=== PATIENT | female | born 1970 | race African-American/Black ===

== ENCOUNTER 2018-09-03 09:16 | Inpatient (IN) | payer MEDICAID ==
[~2018-09-03] VITALS: Ht 157.5 cm; Wt 117.9 kg
--- NOTE | 2018-09-03 09:18 | NUR ---
ED Nurse Note: Pt BIBTracy from a friend's house complainign of SOB x 2 days. Pt had an argument with friend this morning but pt states that she has been feeling like this for 2 days now. Pt has a hx of asthma and COPD. Pt appeared in the ER w/ labored breathing. Pt is sating at 100% on RA. According to EMS, pt was in the hospital last month for PNA. Pt is complaining of left upper breast pain 7/10. Non radiating. Pt is A + O x4. Ambulatory. Skin warm to touch.
[2018-09-03 09:26] VITALS: BP 134/82
[2018-09-03] MEDS ORDERED: Solu-MEDROL 125mg Inj IVP ONE (09:30)
[2018-09-03] MEDS: Ipratropium 0.02% Inh Soln 2.5ml UD HHN SCH ×3 (09:37→12:41)
[2018-09-03] MEDS: Levalbuterol Inh UD 1.25mg/0.5ml HHN SCH ×3 (09:37→12:41)
--- NOTE | 2018-09-03 09:49 | NUR ---
ED Nurse Note: RT at the bedside.
--- NOTE | 2018-09-03 09:51 | NUR ---
ED Nurse Note: Notified radiology of CXR order.
--- NOTE | 2018-09-03 10:01 | NUR ---
ED Nurse Note: Xray has been completed.
[2018-09-03 10:02] LABS: ANION GAP 2 mmol/L (5-15); BLOOD UREA NITROGEN 14 mg/dL (7-18); CALCIUM 9.2 MG/DL (8.5-10.1); CARBON DIOXIDE 37 MMOL/L (21-32); CHLORIDE 102 MMOL/L (98-107); CREATININE 0.5 MG/DL (0.55-1.30); POTASSIUM 4.1 MMOL/L (3.5-5.1); SODIUM 141 MMOL/L (136-145)
[2018-09-03 10:06] LABS: BASOPHILS % (AUTO) 2.7 % (0.0-2.0); EOSINOPHILS % (AUTO) 0.7 % (0.0-3.0); HEMATOCRIT 38.3 % (37.0-47.0); HEMOGLOBIN 11.7 G/DL (12.0-16.0); LYMPHOCYTES % (AUTO) 8.5 % (20.0-45.0); MEAN CORPUSCULAR VOLUME 89 FL (80-99); MONOCYTES % (AUTO) 5.3 % (1.0-10.0); NEUTROPHILS % (AUTO) 82.8 % (45.0-75.0); PLATELET COUNT 322 K/UL (150-450); RED BLOOD COUNT 4.32 M/UL (4.20-5.40); RED CELL DISTRIBUTION WIDTH 16.5 % (11.6-14.8); WHITE BLOOD COUNT 16.9 K/UL (4.8-10.8)
[2018-09-03 10:08] LABS: APPEARANCE,URINE CLOUDY; BILIRUBIN, URINE NEGATIVE (NEGATIVE); COLOR,URINE PALE YELLOW; GLUCOSE, URINE (UA) NEGATIVE (NEGATIVE); KETONES,URINE NEGATIVE (NEGATIVE); LEUKOCYTE ESTERASE ,URINE 1+ (NEGATIVE); NITRITE,URINE NEGATIVE (NEGATIVE); PH,URINE 6 (4.5-8.0); PROTEIN,URINE NEGATIVE (NEGATIVE); UROBILINOGEN,URINE NORMAL MG/DL (0.0-1.0)
[2018-09-03 10:18] LABS: ALANINE AMINOTRANSFERASE 21 U/L (12-78); ALBUMIN 3.1 G/DL (3.4-5.0); ALBUMIN/GLOBULIN RATIO 0.7 (1.0-2.7); ALKALINE PHOSPHATASE 95 U/L (46-116); ASPARTATE AMINO TRANSFERASE 12 U/L (15-37); BILIRUBIN,TOTAL 0.3 MG/DL (0.2-1.0); CKMB 0.7 NG/ML (0.0-3.6); CREATINE KINASE 22 U/L (26-308)
--- NOTE | 2018-09-03 10:51 | NUR ---
ED Nurse Note: Blood culture and lactic acid has been collected and sent to lab.
--- NOTE | 2018-09-03 11:13 | NUR ---
ED Nurse Note: Second lactic acid sent.
[2018-09-03 11:21] VITALS: BP 133/74
[2018-09-03] MEDS ORDERED: Azithromycin 500 MG in NS 275 ML IV ONE (11:45)
[2018-09-03] MEDS ORDERED: Piperacillin/Tazobactam 3.375 GM in NS 110 ML IVPB ONE (11:45)
--- NOTE | 2018-09-03 12:02 | Emergency Room Report ---
History of Present Illness General Chief Complaint: Dyspnea/Respdistress Source: Patient Present Illness HPI 48-year-old female presents ED for evaluation. Brought in by EMS for shortness of breath. Patient states she has history of COPD and has been short of breath for the last few days that she forgot her medications back home. Also complaining of chest tightness. Denies chest pain. Denies fevers or chills. Denies cough. States that she's been recently admitted for pneumonia. States she stopped smoking one week ago. Denies drug use. No other aggravating relieving factors. Denies any other associated symptoms Allergies: Coded Allergies: SULFA (SULFONAMIDE ANTIBIOTICS) (Verified Allergy, Unknown, 09/03/18) Patient History Past Medical History: HTN, asthma, COPD, psych hx Past Surgical History: none Pertinent Family History: none Social History: Denies: smoking, alcohol use, drug use Now: No Immunizations: UTD Reviewed Nursing Documentation: PMH: Agreed; PSxH: Agreed Nursing Documentation-PMH Past Medical History: No History, Except For Hx Asthma: Yes Hx COPD: Yes History Of Psychiatric Problem: Yes - Bipolar Review of Systems All Other Systems: negative except mentioned in HPI Physical Exam Vital Signs Date Time Temp Pulse Resp B/P (MAP) Pulse Ox O2 Delivery O2 Flow Rate FiO2 09/03/18 09:11 97.0 117 21 133/77 Room Air 09/03/18 09:26 92 09/03/18 09:26 92 09/03/18 11:21 2.0 Sp02 EP Interpretation: reviewed, normal General Appearance: no apparent distress, alert, GCS 15, non-toxic Head: normocephalic, atraumatic Eyes: bilateral eye normal inspection, bilateral eye PERRL ENT: hearing grossly normal, normal pharynx, no angioedema, normal voice Neck: full range of motion, supple/symm/no masses Respiratory: chest non-tender, crackles, speaking full sentences, wheezing Cardiovascular #1: regular rate, rhythm, no edema Cardiovascular #2: 2+ carotid (R), 2+ carotid (L), 2+ radial (R), 2+ radial (L) , 2+ dorsalis pedis (R), 2+ dorsalis pedis (L) Gastrointestinal: normal bowel sounds, non tender, soft, non-distended, no guarding, no rebound Rectal: deferred Genitourinary: normal inspection, no CVA tenderness Musculoskeletal: back normal, gait/station normal, normal range of motion, non- tender Neurologic: alert, oriented x3, responsive, motor strength/tone normal, sensory intact, speech normal Psychiatric: judgement/insight normal, memory normal, mood/affect normal, no suicidal/homicidal ideation Reflexes: 3+ bicep (R), 3+ bicep (L), 3+ tricep (R), 3+ tricep (L), 3+ knee (R) , 3+ knee (L) Skin: normal color, no rash, warm/dry, well hydrated Lymphatic: no adenopathy Medical Decision Making Diagnostic Impression: Primary Impression: COPD exacerbation ER Course Hospital Course 48-year-old F presenting to ED with SOB. h/o COPD Differential diagnoses include: Pneumonia, CHF exacerbation, pneumothorax, fluid overload Clinical course Patient placed on stretcher. On manager cardiac cath with stable vitals. After initial history and physical, I ordered nebulizer treatments. I ordered labs, IV fluids, EKG, chest x-ray, blood cultures, UA. Labs - noted leukocytosis, hemoglobin/hematocrit stable, electrolytes okay, lactate okay, troponins negative CXR - bilateral intersitial congestion, R sided infiltrate abx given. ivfs given. Case discussed with Dr. Gregory and he agreed to the patient to his service for further care and support I feel this is a highly complex case requiring extensive working including EKG/ Rhythm strip, Xray/CT/US, Blood/urine lab work, repeat exams while in ED, and administration of strong opiates/narcotics for pain control, admission to hospital or close patient follow up. Diagnosis - COPD exacerbation Patient admitted to telemetry in serious condition Labs Test 09/03/18 09:40 09/03/18 11:05 White Blood Count 16.9 K/UL (4.8-10.8) Red Blood Count 4.32 M/UL (4.20-5.40) Hemoglobin 11.7 G/DL (12.0-16.0) Hematocrit 38.3 % (37.0-47.0) Mean Corpuscular Volume 89 FL (80-99) Mean Corpuscular Hemoglobin 27.0 PG (27.0-31.0) Mean Corpuscular Hemoglobin Concent 30.4 G/DL (32.0-36.0) Red Cell Distribution Width 16.5 % (11.6-14.8) Platelet Count 322 K/UL (150-450) Mean Platelet Volume 6.6 FL (6.5-10.1) Neutrophils (%) (Auto) 82.8 % (45.0-75.0) Lymphocytes (%) (Auto) 8.5 % (20.0-45.0) Monocytes (%) (Auto) 5.3 % (1.0-10.0) Eosinophils (%) (Auto) 0.7 % (0.0-3.0) Basophils (%) (Auto) 2.7 % (0.0-2.0) Urine Color Pale yellow Urine Appearance Cloudy Urine pH 6 (4.5-8.0) Urine Specific [place] 1.020 (1.005-1.035) Urine Protein Negative (NEGATIVE) Urine Glucose (UA) Negative (NEGATIVE) Urine Ketones Negative (NEGATIVE) Urine Blood 2+ (NEGATIVE) Urine Nitrite Negative (NEGATIVE) Urine Bilirubin Negative (NEGATIVE) Urine Urobilinogen Normal MG/DL (0.0-1.0) Urine Leukocyte Esterase 1+ (NEGATIVE) Urine RBC 5-10 /HPF (0 - 2) Urine WBC 5-10 /HPF (0 - 2) Urine Squamous Epithelial Cells Many /LPF (NONE/OCC) Urine Amorphous Sediment Many /LPF (NONE) Urine Bacteria Moderate /HPF (NONE) Sodium Level 141 MMOL/L (136-145) Potassium Level 4.1 MMOL/L (3.5-5.1) Chloride Level 102 MMOL/L (98-107) Carbon Dioxide Level 37 MMOL/L (21-32) Anion Gap 2 mmol/L (5-15) Blood Urea Nitrogen 14 mg/dL (7-18) Creatinine 0.5 MG/DL (0.55-1.30) Estimat Glomerular Filtration Rate > 60 mL/min (>60) Glucose Level 101 MG/DL (74-106) Calcium Level 9.2 MG/DL (8.5-10.1) Total Bilirubin 0.3 MG/DL (0.2-1.0) Aspartate Amino Transf (AST/SGOT) 12 U/L (15-37) Alanine Aminotransferase (ALT/SGPT) 21 U/L (12-78) Alkaline Phosphatase 95 U/L (46-116) Total Creatine Kinase 22 U/L (26-308) Creatine Kinase MB 0.7 NG/ML (0.0-3.6) Creatine Kinase MB Relative Index 3.1 Troponin I 0.017 ng/mL (0.000-0.056) Pro-B-Type Natriuretic Peptide 233 pg/mL (0-125) Total Protein 7.4 G/DL (6.4-8.2) Albumin 3.1 G/DL (3.4-5.0) Globulin 4.3 g/dL Albumin/Globulin Ratio 0.7 (1.0-2.7) Lactic Acid Level 0.80 mmol/L (0.4-2.0) EKG Diagnostic Results Rate: tachycardiac Rhythm: NSR ST Segments: no acute changes ASA given to the pt in ED: No Rhythm Strip Diag. Results EP Interpretation: yes Rhythm: NSR, no PVC's, no ectopy Chest X-Ray Diagnostic Results Chest X-Ray Diagnostic Results : Chest X-Ray Ordered: Yes # of Views/Limited/Complete: 1 View Indication: Shortness of Breath EP Interpretation: Yes Interpretation: no pneumothorax, other - interstitial congestion Impression: Other - COPD/pna Electronically Signed by: Electronically signed by Kade Zavaleta MD Last Vital Signs Date Time Temp Pulse Resp B/P (MAP) Pulse Ox O2 Delivery O2 Flow Rate FiO2 09/03/18 11:21 97.5 112 25 133/74 98 Nasal Cannula 2.0 21 Status: improved Disposition: ADMITTED INPATIENT Condition: Serious Referrals: [facility],REFERRING (PCP) Kade Zavaleta MD Sep 03, 2018 12:02
[2018-09-03] MEDS ORDERED: Albuterol ud Inhalation ONE (12:35)
[2018-09-03] MEDS ORDERED: Levalbuterol Inh UD 1.25mg/0.5ml ONE (12:35)
[2018-09-03] MEDS ORDERED: Ipratropium 0.02% Inh Soln 2.5ml UD ONE (12:37)
[2018-09-03 12:51] VITALS: BP 120/90
--- NOTE | 2018-09-03 13:39 | NUR ---
ED Nurse Note: Gave telephone report to GEE Fischer. Bed unavailable. Will try again.
--- NOTE | 2018-09-03 13:59 | NUR ---
ED Nurse Note: Called tele, bed still unavailable.
--- NOTE | 2018-09-03 14:14 | NUR ---
ED Nurse Note: Admission packet pending.
--- NOTE | 2018-09-03 14:15 | Diagnostic Imaging Report ---
Indication: Shortness of breath Technique: One view of the chest Comparison: none Findings: Patient is rotated to the right. The heart size is upper limits normal. There is equivocal mild interstitial congestion. There is right pulmonary hilar vascular prominence. The heart size is upper limits normal Impression: Equivocal mild pulmonary interstitial congestion. Correlate with clinical findings
[2018-09-03] MEDS ORDERED: LISINOPRIL2.5 MG ORAL (14:22)
[2018-09-03] MEDS ORDERED: DEPAKOTE250 MG PO (14:22)
--- NOTE | 2018-09-03 14:48 | NUR ---
ED Nurse Note: Pt transferred up to tele unit. No acute distress noted. Left ER w/ all belongings.
--- NOTE | 2018-09-03 15:30 | NUR ---
NURSE NOTES: Received patient from ED, report received from Dariela FLYNN. Patient's vitals stable, on 3L NC, 96%. Sinus Tachy. Patient placed in bed, in low position, call light within reach. Educated patient on letting staff know when she needs to get out of bed. Addendum: 09/03/18 at 1749 by Amado Ortega RN Physician consult for LORIE Sams and sher Bull
[2018-09-03 16:00] VITALS: BP 138/80
[2018-09-03] MEDS ORDERED: Albuterol/Ipratropium 3ml neb HHN PRN (16:30)
--- NOTE | 2018-09-03 17:00 | NUR ---
NURSE NOTES: Dr. Gregory notified and orders received.
[2018-09-03] MEDS ORDERED: SEROQUEL300 MG ORAL (17:21)
--- NOTE | 2018-09-03 17:30 | NUR ---
NURSE NOTE Patient reports current pharmacy at [facility] . Called and left voicemail regarding current prescriptions.
--- NOTE | 2018-09-03 18:40 | NUR ---
NURSE NOTES: Received phone call from [facility]) and verified patient was on Seroquel 200mg QHS and discharged with that medication.
--- NOTE | 2018-09-03 19:20 | NUR ---
NURSE NOTES: Received pt. and report from GEE Fischer. Observe pt. resting in bed and watching television with sitter at bedside. Pt. is A/O x4. helminthology teacher is in placed, IV site intact, asymptomatic and patent. Bed is in the lowest position and locked. Call light within reach. No SOB or acute distress noted at this time. Will continue plan of care.
--- NOTE | 2018-09-03 19:28 | NUR ---
HAND-OFF: Report given to Chasidy Craig.
[2018-09-03 20:00] VITALS: BP 132/90
[2018-09-03] MEDS: QUEtiapine 200mg tab ORAL SCH (21:12)
[2018-09-03] MEDS: cefTRIAXone 1 GM in D5W 55 ML IVPB SCH (22:49)
[2018-09-04] VITALS: BP 107/71
[2018-09-04 04:00] VITALS: BP 101/58
--- NOTE | 2018-09-04 06:55 | NUR ---
NURSE NOTES: Notified Dr. Gregory that pt. has been sinus tachycardic and had an episode of 4.76 pause on curator of photography and prints. Awaiting call back. Will endorsed to day shift RN.
[2018-09-04 07:30] LABS: EOSINOPHILS % (AUTO) 0.3 % (0.0-3.0); HEMATOCRIT 33.8 % (37.0-47.0); HEMOGLOBIN 10.2 G/DL (12.0-16.0); LYMPHOCYTES % (AUTO) 15.5 % (20.0-45.0); MEAN CORPUSCULAR VOLUME 91 FL (80-99); NEUTROPHILS % (AUTO) 78.2 % (45.0-75.0); PLATELET COUNT 274 K/UL (150-450); RED BLOOD COUNT 3.73 M/UL (4.20-5.40); RED CELL DISTRIBUTION WIDTH 16.5 % (11.6-14.8); WHITE BLOOD COUNT 12.9 K/UL (4.8-10.8)
--- NOTE | 2018-09-04 07:30 | NUR ---
CASE MANAGEMENT:REVIEW 48 YR OLD FEMALE BIBA FROM [facility] CC: SOB PMH: COPD. ASTHMA SI: COPD EXACERBATION 97.0 117 21 133/77 92% ON RA WBC+16.9 IS: DUONEB HHN 500CC NS BOLUS IV SOLUMEDROL IV ZOSYN IV AZITHROMYCIN 1L NS BOLUS URINE/BLOOD CX CXR : TO TELEMETRY INTERQUAL CRITERIA MET
[2018-09-04 07:33] LABS: ALANINE AMINOTRANSFERASE 17 U/L (12-78); ALBUMIN 2.6 G/DL (3.4-5.0); ALBUMIN/GLOBULIN RATIO 0.6 (1.0-2.7); ALKALINE PHOSPHATASE 77 U/L (46-116); ANION GAP 4 mmol/L (5-15); ASPARTATE AMINO TRANSFERASE 34 U/L (15-37); BILIRUBIN,TOTAL 0.2 MG/DL (0.2-1.0); BLOOD UREA NITROGEN 14 mg/dL (7-18); CALCIUM 9.2 MG/DL (8.5-10.1); CARBON DIOXIDE 35 MMOL/L (21-32); CHLORIDE 104 MMOL/L (98-107); CREATININE 0.5 MG/DL (0.55-1.30); POTASSIUM 4.2 MMOL/L (3.5-5.1); SODIUM 143 MMOL/L (136-145)
--- NOTE | 2018-09-04 07:46 | NUR ---
NURSE NOTES: Received report from Chasidy FLYNN. AOX4 and able to make need known. pT WITH 1:1 sitter.No c/o pain. No signs of distress noted. IV 20G LAC SL intact and patent. Pt refused O2 and SCDs. Bed in lowest position locked. Will continue to plan of care.
--- NOTE | 2018-09-04 07:46 | NUR ---
HAND-OFF: Report given to GEE Herring.
[2018-09-04 07:57] VITALS: BP 130/69
[2018-09-04] MEDS: Azithromycin 250mg tab ORAL SCH (08:58)
[2018-09-04] MEDS ORDERED: Lisinopril 2.5mg tab ORAL SCH (09:00)
--- NOTE | 2018-09-04 09:30 | NUR ---
NURSE NOTES: Dr. Gregory called for the patient's episode of pause of pulse(4.76/sec) last night. EKG stat ordered and ordered to call thony Juarez(cardio) regarding any cardiac issues. Called Dr. Ca's office and left a message for the episode of pause of pulse and EKG to Myles FLYNN and awaiting for reply.
--- NOTE | 2018-09-04 10:46 | NUR ---
*-* NO INSURANCE INFORMATION IN BAR UNABLE TO SEND CLINICALS OR REVIEWS *-*
--- NOTE | 2018-09-04 11:06 | Consultation ---
History of Present Illness General Chief Complaint: Dyspnea/Respdistress Present Illness HPI 48-year-old female presents ED for evaluation for shortness of breath. The pt has history of COPD and bipolar do. the pt is pw depressed mood however the pt is stable and not endorsing si/hi. the pt is not endorsing psychotic/manic sxs. the pt is not at imminent dts/dto Allergies: Coded Allergies: PEANUT (Verified Allergy, Intermediate, hives, 09/03/18) TOMATO (Verified Allergy, Intermediate, hives, 09/03/18) [place] (Verified Allergy, Unknown, hives, 09/03/18) SULFA (SULFONAMIDE ANTIBIOTICS) (Verified Allergy, Unknown, 09/03/18) Medication History Scheduled Divalproex Sodium* (Depakote*), 250 MG PO Q12HR, (Reported) Lisinopril* (Lisinopril*), 2.5 MG ORAL DAILY, (Reported) Quetiapine Fumarate (Seroquel), 250 MG ORAL TWICE A DAY, (Reported) Patient History History Provided By: Patient, Medical Record, PMD Healthcare decision maker N Resuscitation status Full Code Advanced Directive on File Past Medical/Surgical History Past Medical/Surgical History: (1) COPD exacerbation (2) Bipolar 1 disorder Review of Systems Psychiatric: Reports: prior hx, anxiety, depressed feelings, emotional problems Physical Exam General Appearance: WD/WN, no apparent distress, alert, morbidly obese Neurologic: alert, oriented x 3, depressed affect Last 24 Hour Vital Signs Date Time Temp Pulse Resp B/P (MAP) Pulse Ox O2 Delivery O2 Flow Rate FiO2 09/04/18 09:00 Nasal Cannula 2.0 09/04/18 08:58 130/69 09/04/18 08:00 114 09/04/18 07:57 98.2 115 20 130/69 (89) 90 115 09/04/18 07:15 108 20 Room Air 21 09/04/18 04:00 115 09/04/18 04:00 97.5 115 19 101/58 (72) 98 115 09/04/18 00:00 98.7 113 21 107/71 (83) 98 113 09/04/18 00:00 113 09/03/18 23:14 112 24 Room Air 21 09/03/18 21:00 Nasal Cannula 2.0 09/03/18 20:00 98.2 107 20 132/90 (104) 100 107 09/03/18 20:00 110 09/03/18 16:00 98.2 106 22 138/80 (99) 96 106 09/03/18 15:43 106 09/03/18 15:26 Nasal Cannula 3.0 09/03/18 14:47 98.2 112 23 137/73 98 Nasal Cannula 2.0 21 09/03/18 12:51 98.1 110 18 120/90 97 Nasal Cannula 2.0 09/03/18 11:21 97.5 112 25 133/74 98 Nasal Cannula 2.0 21 Intake and Output 09/03/18 09/04/18 19:00 07:00 Intake Total 850 ml Balance 850 ml IV Total 850 ml # Voids 4 3 Laboratory Tests Test 09/04/18 06:10 White Blood Count 12.9 K/UL (4.8-10.8) H Red Blood Count 3.73 M/UL (4.20-5.40) L Hemoglobin 10.2 G/DL (12.0-16.0) L Hematocrit 33.8 % (37.0-47.0) L Mean Corpuscular Volume 91 FL (80-99) Mean Corpuscular Hemoglobin 27.2 PG (27.0-31.0) Mean Corpuscular Hemoglobin Concent 30.1 G/DL (32.0-36.0) L Red Cell Distribution Width 16.5 % (11.6-14.8) H Platelet Count 274 K/UL (150-450) Mean Platelet Volume 7.1 FL (6.5-10.1) Neutrophils (%) (Auto) 78.2 % (45.0-75.0) H Lymphocytes (%) (Auto) 15.5 % (20.0-45.0) L Monocytes (%) (Auto) 5.0 % (1.0-10.0) Eosinophils (%) (Auto) 0.3 % (0.0-3.0) Basophils (%) (Auto) 1.0 % (0.0-2.0) Sodium Level 143 MMOL/L (136-145) Potassium Level 4.2 MMOL/L (3.5-5.1) Chloride Level 104 MMOL/L (98-107) Carbon Dioxide Level 35 MMOL/L (21-32) H Anion Gap 4 mmol/L (5-15) L Blood Urea Nitrogen 14 mg/dL (7-18) Creatinine 0.5 MG/DL (0.55-1.30) L Estimat Glomerular Filtration Rate > 60 mL/min (>60) Glucose Level 128 MG/DL (74-106) H Calcium Level 9.2 MG/DL (8.5-10.1) Total Bilirubin 0.2 MG/DL (0.2-1.0) Aspartate Amino Transf (AST/SGOT) 34 U/L (15-37) Alanine Aminotransferase (ALT/SGPT) 17 U/L (12-78) Alkaline Phosphatase 77 U/L (46-116) Total Protein 6.6 G/DL (6.4-8.2) Albumin 2.6 G/DL (3.4-5.0) L Globulin 4.0 g/dL Albumin/Globulin Ratio 0.6 (1.0-2.7) L Height (Feet): 5 Height (Inches): 3.00 Weight (Pounds): 260 Medications Current Medications Medications (Trade) Dose Ordered Sig/Jason Route PRN Reason Start Time Stop Time Status Last Admin Dose Admin Albuterol/ Ipratropium (Albuterol/ Ipratropium) 3 ml Q4HRT PRN HHN Shortness of Breath 09/03/18 16:30 09/08/18 16:29 Azithromycin (Zithromax) 250 mg DAILY ORAL 09/04/18 09:00 09/11/18 08:59 09/04/18 08:58 Ceftriaxone Sodium 1 gm/ Dextrose 55 ml @ 110 mls/hr Q24H IVPB 09/03/18 23:00 09/10/18 22:59 09/03/18 22:49 Divalproex Sodium (Depakote) 250 mg Q12HR ORAL 09/03/18 21:00 10/03/18 20:59 09/04/18 08:58 Lisinopril (Zestril) 2.5 mg DAILY ORAL 09/04/18 09:00 10/04/18 08:59 09/04/18 08:58 Quetiapine Fumarate (SEROquel) 200 mg BEDTIME ORAL 09/03/18 21:00 5/9/19 20:59 09/03/18 21:12 Assessment/Plan Problem List: (1) Bipolar 1 disorder ICD Codes: F31.9 - Bipolar disorder, unspecified SNOMED: 325758246 Status: stable Assessment/Plan Seroquel 300mg po qhs dc Depakote the pt is not a dto/dts the pt does not need the sitter the pt is not suicidal the pt doesn't need [facility] Everton Bull MD Sep 04, 2018 11:05
--- NOTE | 2018-09-04 11:29 | Consultation ---
Consult Note Consult Note asked to eval by Dr Rosales HPI 48-year-old female presents ED for evaluation. Brought in by EMS for shortness of breath. Patient states she has history of COPD and has been short of breath for the last few days that she forgot her medications back home. Also complaining of chest tightness. Denies chest pain. Denies fevers or chills. Denies cough. States that she's been recently admitted for pneumonia. States she stopped smoking one week ago. Denies drug use. No other aggravating relieving factors. Denies any other associated symptoms Allergies: SULFA (SULFONAMIDE ANTIBIOTICS) (Verified Allergy, Unknown, 09/03/18) Past Medical History: HTN, asthma, COPD, psych hx Past Medical History: No History, Except For Hx Asthma: Yes Hx COPD: Yes History Of Psychiatric Problem: Yes - Bipolar interviewed examined data reviewed Assessment/Plan Anemia HypoAlbuminemia UTI COPD exacerbation ? CHF Psych Ds Anemia quiroz BP in check per Psych antibiotics pulm toilet per orders Dante Patel MD Sep 04, 2018 11:29
[2018-09-04 11:53] VITALS: BP 101/63
[2018-09-04 11:53] LABS: PHOSPHORUS 3.9 MG/DL (2.5-4.9)
[2018-09-04 12:08] LABS: FERRITIN 59 NG/ML (8-388)
[2018-09-04] MEDS: Docusate 100mg cap ORAL SCH ×2 (12:11→17:39)
[2018-09-04 12:22] LABS: IRON 22 ug/dL (50-175); TOTAL IRON BINDING CAPACITY 294 ug/dL (250-450)
[2018-09-04 12:23] LABS: % IRON SATURATION 7 % (15-50)
[2018-09-04 16:00] VITALS: BP 114/65
--- NOTE | 2018-09-04 16:32 | Consultation ---
History of Present Illness General Chief Complaint: Dyspnea/Respdistress Present Illness Allergies: Coded Allergies: PEANUT (Verified Allergy, Intermediate, hives, 09/03/18) TOMATO (Verified Allergy, Intermediate, hives, 09/03/18) [place] (Verified Allergy, Unknown, hives, 09/03/18) SULFA (SULFONAMIDE ANTIBIOTICS) (Verified Allergy, Unknown, 09/03/18) Medication History Scheduled Divalproex Sodium* (Depakote*), 250 MG PO Q12HR, (Reported) Lisinopril* (Lisinopril*), 2.5 MG ORAL DAILY, (Reported) Quetiapine Fumarate (Seroquel), 250 MG ORAL TWICE A DAY, (Reported) Patient History Healthcare decision maker N Resuscitation status Full Code Advanced Directive on File Physical Exam Last 24 Hour Vital Signs Date Time Temp Pulse Resp B/P (MAP) Pulse Ox O2 Delivery O2 Flow Rate FiO2 09/04/18 12:00 100 09/04/18 11:53 97.4 102 18 101/63 (76) 100 102 09/04/18 09:00 Nasal Cannula 2.0 09/04/18 08:58 130/69 09/04/18 08:00 114 09/04/18 07:57 98.2 115 20 130/69 (89) 90 115 09/04/18 07:15 108 20 Room Air 21 09/04/18 04:00 115 09/04/18 04:00 97.5 115 19 101/58 (72) 98 115 09/04/18 00:00 98.7 113 21 107/71 (83) 98 113 09/04/18 00:00 113 09/03/18 23:14 112 24 Room Air 21 09/03/18 21:00 Nasal Cannula 2.0 09/03/18 20:00 98.2 107 20 132/90 (104) 100 107 09/03/18 20:00 110 Intake and Output 09/03/18 09/04/18 19:00 07:00 Intake Total 850 ml Balance 850 ml IV Total 850 ml # Voids 4 3 Laboratory Tests Test 09/04/18 06:10 White Blood Count 12.9 K/UL (4.8-10.8) H Red Blood Count 3.73 M/UL (4.20-5.40) L Hemoglobin 10.2 G/DL (12.0-16.0) L Hematocrit 33.8 % (37.0-47.0) L Mean Corpuscular Volume 91 FL (80-99) Mean Corpuscular Hemoglobin 27.2 PG (27.0-31.0) Mean Corpuscular Hemoglobin Concent 30.1 G/DL (32.0-36.0) L Red Cell Distribution Width 16.5 % (11.6-14.8) H Platelet Count 274 K/UL (150-450) Mean Platelet Volume 7.1 FL (6.5-10.1) Neutrophils (%) (Auto) 78.2 % (45.0-75.0) H Lymphocytes (%) (Auto) 15.5 % (20.0-45.0) L Monocytes (%) (Auto) 5.0 % (1.0-10.0) Eosinophils (%) (Auto) 0.3 % (0.0-3.0) Basophils (%) (Auto) 1.0 % (0.0-2.0) Sodium Level 143 MMOL/L (136-145) Potassium Level 4.2 MMOL/L (3.5-5.1) Chloride Level 104 MMOL/L (98-107) Carbon Dioxide Level 35 MMOL/L (21-32) H Anion Gap 4 mmol/L (5-15) L Blood Urea Nitrogen 14 mg/dL (7-18) Creatinine 0.5 MG/DL (0.55-1.30) L Estimat Glomerular Filtration Rate > 60 mL/min (>60) Glucose Level 128 MG/DL (74-106) H Calcium Level 9.2 MG/DL (8.5-10.1) Phosphorus Level 3.9 MG/DL (2.5-4.9) Magnesium Level 1.8 MG/DL (1.8-2.4) Iron Level 22 ug/dL (50-175) L Total Iron Binding Capacity 294 ug/dL (250-450) Percent Iron Saturation 7 % (15-50) L Unsaturated Iron Binding 272 ug/dL (112-346) Ferritin 59 NG/ML (8-388) Total Bilirubin 0.2 MG/DL (0.2-1.0) Aspartate Amino Transf (AST/SGOT) 34 U/L (15-37) Alanine Aminotransferase (ALT/SGPT) 17 U/L (12-78) Alkaline Phosphatase 77 U/L (46-116) Total Protein 6.6 G/DL (6.4-8.2) Albumin 2.6 G/DL (3.4-5.0) L Globulin 4.0 g/dL Albumin/Globulin Ratio 0.6 (1.0-2.7) L Vitamin B12 Level 490 PG/ML (193-986) Folate 13.3 NG/ML (8.6-58.9) Height (Feet): 5 Height (Inches): 3.00 Weight (Pounds): 260 Medications Current Medications Medications (Trade) Dose Ordered Sig/Jason Route PRN Reason Start Time Stop Time Status Last Admin Dose Admin Albuterol/ Ipratropium (Albuterol/ Ipratropium) 3 ml Q4HRT PRN HHN Shortness of Breath 09/03/18 16:30 09/08/18 16:29 Azithromycin (Zithromax) 250 mg DAILY ORAL 09/04/18 09:00 09/11/18 08:59 09/04/18 08:58 Ceftriaxone Sodium 1 gm/ Dextrose 55 ml @ 110 mls/hr Q24H IVPB 09/03/18 23:00 09/10/18 22:59 09/03/18 22:49 Clonidine HCl (Catapres Tab) 0.1 mg Q4H PRN ORAL bp over 165 syst 09/04/18 11:30 10/04/18 11:29 Docusate Sodium (Colace) 100 mg THREE TIMES A DAY ORAL 09/04/18 13:00 10/04/18 12:59 09/04/18 12:11 Pantoprazole (Protonix) 40 mg EVERY 12 HOURS ORAL 09/04/18 21:00 10/04/18 20:59 Quetiapine Fumarate (SEROquel) 200 mg BEDTIME ORAL 09/03/18 21:00 10/03/18 20:59 09/03/18 21:12 Assessment/Plan Assessment/Plan Hematology Consultation DOS: 09/04/18 RFC: Anemia arlen CORADO MD: Brendan Gregory 48-year-old female presents ED for evaluation. Brought in by EMS for shortness of breath. Patient states she has history of COPD and has been short of breath for the last few days that she forgot her medications back home. Also complaining of chest tightness. Denies chest pain. Denies Denies cough. States that she's been recently admitted for pneumonia. States she stopped smoking one week ago. Denies drug use. No other aggravating relieving factors. Denies any other associated symptoms Coded Allergies: SULFA (SULFONAMIDE ANTIBIOTICS) (Verified Allergy, Unknown, 09/03/18) Past Medical History: HTN, asthma, COPD, psych hx Past Surgical History: none Pertinent Family History: none Social History: Denies: smoking, alcohol use, drug use Now: No Immunizations: UTD Reviewed Nursing Documentation: PMH: Agreed; PSxH: Agreed Past Medical History: No History, Except For Hx Asthma: Yes Hx COPD: Yes History Of Psychiatric Problem: Yes - Bipolar Review of Systems: negative except mentioned in HPI PE Vital Signs Date Time Temp Pulse Resp B/P (MAP) Pulse Ox O2 Delivery O2 Flow Rate FiO2 09/03/18 09:11 97.0 117 21 133/77 Room Air 09/03/18 09:26 92 09/03/18 09:26 92 09/03/18 11:21 2.0 Physical Exam: Vitals: reviewed General Appearance: NAD HEENT: normocephalic, atraumatic Neck: non-tender, normal alignment Respiratory/Chest: ++ sob noted Cardiovascular/Chest: normal peripheral pulses, normal rate Abdomen: normal bowel sounds, soft, nontender Extremities: normal range of motion Assessment and Recs: # Anemia of iron deficiency, ferritin at this time is decreased, is <100, has been started on iron --> Anemia workup has been ordered, rule out gi bleed --> No evidence of hemolysis is noted, peripheral smear has been reviewed. --> Hgb goal >7. Transfuse prn. --> Po ferrous sulfate has been started --> Medications have been reviewed --> evaluate with Gi team prn --> transfuse if hgb is < 7 (will trend CBC daily) # Leukocytois is likely related to stress reaction/infection --> trend wbc, 12k # COPD exacerbation --> on, abx, breathing treatments on prn basis # Electrolyte disorder --> as per renal # Psych disorder --> as per psych # Trachycardia is likely related to hemodilution --> appears improved The timing of this note does not necessarily reflect the time of the patient was seen. Greatly appreciate consultation! Jackson Goff MD Sep 04, 2018 16:32
--- NOTE | 2018-09-04 17:07 | NUR ---
Social Service Note MARITZA spoke with patient's mother Vanda Desai [phone] who was unable to provide a comprehensive history of patient's care. Mother states she has no idea how long she has been residing in [place] or how she got to [place]. Mother states patient is chronically homeless. Mother cannot provide mental health history, but thinks she has "something". Mother states patient would stay at her grandmother's house more often so mother really isn't aware of patient. Mother states there is no family that would allow patient to reside with them. Mother wouldn't provide and explanation just stated no one would want her. Mother states patient has resided in [facility]. Mother believes she receives income. Patient is not conserved per mother. SW will follow up with patient in AM, as she declined to speak with SW this AM.
--- NOTE | 2018-09-04 19:30 | NUR ---
HAND-OFF: Report given to Tobi FLYNN. Pt remains stable.
--- NOTE | 2018-09-04 19:30 | Consultation ---
DATE OF CONSULTATION: INFECTIOUS DISEASES CONSULTATION CONSULTING PHYSICIAN: Howie Sams M.D. PRIMARY ATTENDING PHYSICIAN: Brendan Gregory M.D. REASON FOR CONSULTATION: COPD exacerbation. HISTORY OF PRESENT ILLNESS: The patient is a 48-year-old female admitted yesterday complaining of shortness of breath, chest tightness, and slight coughing. The patient says that she has history of COPD but not compliant with medications in the recent days, also she is supposed to be on oxygen at home but does not take it. PAST MEDICAL HISTORY: Significant for hypertension, COPD, asthma, bipolar disorder, morbid obesity. ALLERGIES: Allergic to , peanuts, sulfa drugs, and tomato. MEDICATIONS: Getting lisinopril, azithromycin, ceftriaxone, Seroquel, albuterol ipratropium inhaler. Get a dose of Zosyn in the ER. SOCIAL HISTORY: Single. She has two grown up children. Smoking, she states that she is on nicotine patch. No drug or alcohol abuse. REVIEW OF SYSTEMS: Coughing that is mostly dry. She has shortness of breath especially with exertion. No nausea. No vomiting. No sore throat. No runny nose. No problem passing urine. PHYSICAL EXAMINATION: VITAL SIGNS: Heart rate is 114, temperature 98.2, afebrile since admission, blood pressure 130/69. GENERAL APPEARANCE: Seems to be obese, no acute distress. HEAD AND NECK: Getting oxygen by nasal cannula. No oral lesion. HEART: S1 and S2 regular. Tachycardic. LUNGS: Decreased sounds bilaterally. ABDOMEN: Obese. EXTREMITIES: No edema. NEUROLOGIC: Awake, alert, oriented x3. LABORATORY AND DIAGNOSTIC DATA: WBC at the time of admission was 16.9, coming down to 12.9, hemoglobin is 10.2, hematocrit 32.8, and platelets 274. Sodium 143, potassium 4.2, chloride 104, bicarbonate 35, BUN 14, creatinine 0.5, and glucose 128. UA showed wbc's 5 to 10, rbc's 5 to 10, bacteria many. Chest x-ray showed mild interstitial congestion. IMPRESSION: 1. Sepsis with leukocytosis and tachycardia. 2. COPD exacerbation. 3. Morbid obesity. 4. Bipolar disorder. 5. Anemia. RECOMMENDATION: 1. Continue with antibiotics, Zithromax and ceftriaxone. 2. We will continue with bronchodilators and oxygen. 3. We will follow up the labs. At the end of my exam, I thank Dr. Gregory for involving me in the care of this patient. Howie Sams M.D. DR: Noé JOB#: [id number] CC:
--- NOTE | 2018-09-04 19:31 | NUR ---
NURSE NOTES: Got report from Nima/Leia RN. Pt in stable condition. Denies any pain. No s/s of distress noted. Pt resting in bed comfortably. 1-1 sitter in room for safety. No s/s of distress noted. Pt resting in bed comfortably. Bed in low and locked position, call light within reach, bedside table within reach. Continue to monitor.
[2018-09-04 20:00] VITALS: BP 100/60
--- NOTE | 2018-09-04 20:06 | Consultation ---
Consult Note Consult Note Cardiac EP Full note dictated # [id number] 48 yo AAF w COPD, MOY ( not on treatment) and bipolar disorder who is adm w/ dyspnea/ copd exacerbation. She is noted w/ 4-5 sec sinus pauses at night, during sleep- suspect due to sleep apnea, but cannot r/o intrinsic SN disease, in view of her hx of dizziness and syncope. Would obtain pulm eval /treatment for MOY. DC clonidine as may contribute to bradyarrhythmias. Pt does not wish to consider pacing. Would favor outpt arrhythmia monitoring ( event monitor or insertable loop recorder). will follow. Jillian Ca MD Sep 04, 2018 20:06
[2018-09-04] MEDS: QUEtiapine 200mg tab ORAL SCH (21:09)
[2018-09-04] MEDS: cefTRIAXone 1 GM in D5W 55 ML IVPB SCH (23:08)
[2018-09-05] VITALS: BP 100/65
--- NOTE | 2018-09-05 02:45 | Consultation ---
DATE OF CONSULTATION: 09/04/2018 CARDIAC ELECTROPHYSIOLOGY CONSULT REASON FOR CONSULT: Sinus pause. HISTORY OF PRESENT ILLNESS: This is a 48-year-old woman with a history of chronic obstructive pulmonary disease and bipolar disorder. She lives in [place], but was visiting [place]. She presented to the emergency room for evaluation of shortness of breath and was admitted for chronic obstructive pulmonary disease exacerbation. On telemetry last night at 01:17 a.m. and again at 1:49 a.m., she was noted to have prolonged sinus pauses. The first episode was a 4.7 second pause. The second was a 5.4 second pause. Otherwise, her rhythm has been stable, sinus rhythm and sinus tachycardia. She states that she has a history of sleep apnea. Previously, was on evening CPAP, but currently does not have a CPAP machine. She reports previous episodes of dizziness and a syncopal episode about 1 week ago while walking to attend therapy group. She is not able to give further details of these episodes of dizziness or syncope, but states that she has not had injury with any episode. Her cardiac evaluation here has included an echo, which shows normal left ventricular function, ejection fraction 60% to 65 percent. No left ventricular hypertrophy. Mild mitral regurgitation and mild tricuspid regurgitation as well as moderate pulmonary hypertension with PA pressure estimated at 47 mmHg. Cardiac electrophysiology evaluation was requested for recommendations regarding her sinus pauses. PAST MEDICAL HISTORY: As noted above. MEDICATIONS: Currently, Protonix 40 mg q.12 hours, iron sulfate 325 mg three times daily, Colace 100 mg three times daily, clonidine 0.1 mg q.4 hours p.r.n., Zestril 2.5 mg daily, Zithromax 250 mg orally daily, ceftriaxone 1 g IV q.24 hours, Seroquel 200 mg at bedtime, and albuterol nebulizer. ALLERGIES: Sulfa drugs. SOCIAL HISTORY: Per the notes, the patient is currently homeless. She has a history of previous methamphetamine use, but denies any current drug use. She has a previous history of tobacco use. Currently, uses a nicotine patch. No history of alcohol abuse. REVIEW OF SYSTEMS: As per history of present illness. PHYSICAL EXAMINATION: VITAL SIGNS: Blood pressure is 114/65, pulse 101, regular, respirations 18, and afebrile. GENERAL: Alert and well-developed female, in no acute distress. HEENT: Normocephalic and atraumatic. Pupils are equal, round, and reactive to light. Extraocular movements intact. Sclerae anicteric. Oral mucosa are moist. NECK: Supple. There is no jugular venous distention. Carotid pulses are 2+ bilaterally without bruits. There is no thyromegaly. LUNGS: Clear to auscultation bilaterally. HEART: Regular rate and rhythm. S1, S2 with distant heart sounds. No murmur or S3. ABDOMEN: Soft and nontender. No palpable mass. Obese. EXTREMITIES: No cyanosis, clubbing, or edema. Distal lower extremity pulses are intact bilaterally. LABORATORY AND DIAGNOSTIC DATA: Hemoglobin 10.2, white blood count 12,900,and platelets 274,000. Sodium 143, potassium 4.2, chloride 104, bicarbonate 35, BUN 14, creatinine 0.5, and glucose 128. EKG shows normal sinus rhythm, sinus tachycardia at the rate of 113 beats per minute, biatrial enlargement, axis +60 degrees. A chest x-ray shows borderline cardiomegaly and pulmonary vascular prominence. ASSESSMENTS AND RECOMMENDATIONS: The patient is a 48-year-old woman with a history of bipolar disorder, chronic obstructive pulmonary disease, and sleep apnea, who is admitted with a chronic obstructive pulmonary disease exacerbation and is noted to have prolonged sinus pauses on telemetry at night. She has no symptoms with these pauses, but she does give history of episodes of dizziness and syncope. I would favor evaluation and treatment for sleep apnea as these pauses may be due to sleep apnea. Given the history of dizziness and syncope as well as the length of sinus pauses, who is admitted with a chronic obstructive pulmonary disease exacerbation, she is noted to have prolonged sinus pauses at night. These may be due to sleep apnea. She is also on clonidine which may exacerbate the bradyarrhythmia. She gives a history of episodes of dizziness and syncope which may be due to an arrhythmia, though on telemetry, her heart rate has been normal during the day. I would recommend discontinuation of clonidine. I would assess the patient for possible sleep apnea. If pauses persist, would consider permanent pacemaker. I would favor outpatient arrhythmia monitoring as well though this may be difficult with her current living situation unless she is discharged to a convalescent facility. If pauses persist, would consider permanent pacing. The patient, at this point, does not wish to consider a pacemaker or any invasive procedures. Thank you for allowing me to see her in electrophysiology evaluation. I will be happy to follow her with you. Jillian Ca M.D. DR: MINA JOB#: [id number] CC:
[2018-09-05 04:00] VITALS: BP 109/80
--- NOTE | 2018-09-05 07:00 | History and Physical Report ---
DATE OF ADMISSION: 09/03/2018 HISTORY OF PRESENT ILLNESS: The patient is admitted for chronic obstructive pulmonary disease exacerbation, respiratory insufficiency, as well as pneumonia and urinary tract infection. The patient complains of shortness of breath and dry cough, nonproductive and and chest pressure for the past couple of days. The patient also has history of multiple suicide attempts. I have ordered a one-to-one sitter. The patient has history of severe depression. Denies nausea, vomiting, or diarrhea. Denies wheezing. PAST MEDICAL HISTORY: Depression with suicide attempts, hypertension, chronic obstructive pulmonary disease, and also hernia. PAST SURGICAL HISTORY: and hernia repair. MEDICATIONS: Lisinopril, Seroquel, and Depakote. ALLERGIES: [place], peanuts, and sulfa. SOCIAL HISTORY: History of smoking. History of drug abuse. FAMILY HISTORY: She does have severe depression. REVIEW OF SYSTEMS: HEENT: Denies headaches. RESPIRATORY: Does have shortness of breath and nonproductive cough for couple of days. CARDIOVASCULAR: Does have chest pressure. Denies orthopnea. GASTROINTESTINAL: Denies nausea, vomiting, or diarrhea. EXTREMITY: Denies pain in the lower extremities. CENTRAL NERVOUS SYSTEM: Denies change in vision or speech pattern. PHYSICAL EXAMINATION: VITAL SIGNS: Temperature 97.4, pulse is 102, and blood pressure is 101/62. HEENT: PERRLA. NECK: Supple. No lymphadenopathy. CHEST: Clear to auscultation. CARDIOVASCULAR: Regular rate and rhythm. No murmurs or extra sounds. GASTROINTESTINAL: Soft, nontender, and nondistended. No organomegaly. EXTREMITY: A 1+ edema. Reflexes equal in both sides. Moves all four extremities. NEUROLOGIC: Sensory is intact to light touch. Reflexes equal in both sides. LABORATORY DATA: WBC of 16.9, hemoglobin 11.7, and platelets 322,000. Sodium 142, potassium 4.2, and glucose is 128. BUN of 14 and creatinine 0.5. ASSESSMENT: 1. Urinary tract infection. 2. Chronic obstructive pulmonary disease exacerbation. 3. Respiratory insufficiency. 4. Depression. PLAN: I have ordered a one-to-one sitter. Also, I have consulted Dr. Jillian Ca, clerical manager, for some seconds pause on the monitor as well as Dr. Bull, Dr. Patel, and Dr. Howie Sams for the treatment of the above-mentioned diagnoses. Brendan Gregory M.D. DR: JR JOB#: [id number] CC:
--- NOTE | 2018-09-05 07:10 | NUR ---
HAND-OFF: Report given to Nima/Diane FLYNN. Endorsed plan of care.
--- NOTE | 2018-09-05 07:49 | NUR ---
NURSE NOTES: Received report from GEE Britton. Patient asleep and no acute distress/SOB ntoed. Sitter is at the bedside. Will continue plan of care.
[2018-09-05 08:24] VITALS: BP 127/74
[2018-09-05] MEDS: Docusate 100mg cap ORAL SCH ×3 (08:25→17:33)
[2018-09-05] MEDS: Azithromycin 250mg tab ORAL SCH (08:25)
[2018-09-05] MEDS ORDERED: Iron Sucrose 200 MG in NS 110 ML IV ONE (10:00)
--- NOTE | 2018-09-05 11:39 | NUR ---
Social Service Note MARITZA met with patient to obtain history. Patient guarded, wouldn't provide time frame as to when she came to [place] from [place]. Patient states she has no where to stay and is homelessness. Patient not sure if she wants to return to the [place] area. Patient states she has a payee who providers her $150 a week from her SSI check of $900 a month. [phone]. SW left a message. SW assessed for suicidal ideations. Patient states she was in a facility in [place] 3 months ago. Patient states she was diagnosed with bipolar disorder as a child. Patient denies plan for self harm but states she is always thinking about dying and that this was nothing new. Patient doesn't have a housing plan upon discharge. Patient doesn't want to return to the male's house where she was residing. SW discussed fdc placement, and [facility]. MARITZA will also speak with [facility] to determine available income. Patient seen by psych. Will monitor and follow up.
--- NOTE | 2018-09-05 11:44 | NUR ---
CASE MANAGEMENT:REVIEW 09/05/18 SI: COPD EXACERBATION 97.7 114 18 100/65 99% ON 2L/NC IS: PROTONIX PO Q12 AZITHROMAX PO QD SEROQUEL PO QHS DUONEB HHN Q4HRS RTC : TO TELEMETRY DCP: HOMELESS?
[2018-09-05 12:03] VITALS: BP 130/74
--- NOTE | 2018-09-05 13:29 | NUR ---
*-* INSURANCE *-* ALL CLINICALS AND REVIEWS HAVE BEEN FAXED TO: [facility] P- [phone] F- [phone]
[2018-09-05] MEDS ORDERED: GI Cocktail 50ml ORAL PRN (14:15)
--- NOTE | 2018-09-05 14:15 | GI Initial Consult Note ---
History of Present Illness General Date patient seen: Sep 05, 2018 Time patient seen: 14:10 Reason for Hospitalization: Dyspnea/Respdistress Referring physician: KAREEN BOONE Reason for Consultation: Abdominal pain Present Illness HPI 48-year-old female presents ED for evaluation. Brought in by EMS for shortness of breath. Patient states she has history of COPD and has been short of breath for the last few days that she forgot her medications back home. Also complaining of chest tightness. Denies chest pain. Denies fevers or chills. Denies cough. States that she's been recently admitted for pneumonia. States she stopped smoking one week ago. Denies drug use. No other aggravating relieving factors. Denies any other associated symptoms GI consulted for abdominal pain. Patient seen, awake alert and oriented x4 no apparent distress. Sitter at bedside. Patient has current complaint of severe epigastric pain unrelieved with medication. Abdomen soft, nondistended, tender all quadrants to palpation. In addition, the patient has complaint of diarrhea.Labs reviewed; hemoglobin 10.2, WBC of 12.9, iron saturation of 7 and albumin level 2.6. The patient has no history of endoscopic or colonoscopy. Home Meds Reported Medications Quetiapine Fumarate (SEROQUEL) 300 Mg Tablet, 250 MG ORAL TWICE A DAY, TAB 09/03/18 Lisinopril* (LISINOPRIL*) 2.5 Mg Tablet, 2.5 MG ORAL DAILY, TAB 0 Refills 09/03/18 Divalproex Sodium* (DEPAKOTE*) 250 Mg Tablet.dr, 250 MG PO Q12HR, TAB 09/03/18 Med list reviewed/reconciled: Yes Allergies: Coded Allergies: PEANUT (Verified Allergy, Intermediate, hives, 09/03/18) TOMATO (Verified Allergy, Intermediate, hives, 09/03/18) Carmel (Verified Allergy, Unknown, hives, 09/03/18) SULFA (SULFONAMIDE ANTIBIOTICS) (Verified Allergy, Unknown, 09/03/18) Patient History History Provided By: Patient, Medical Record PMH Narrative Past Medical History: HTN, asthma, COPD, psych hx Past Surgical History: none Pertinent Family History: none Social History: Denies: smoking, alcohol use, drug use Now: No Immunizations: UTD Reviewed Nursing Documentation: PMH: Agreed; PSxH: Agreed Nursing Documentation-PMH Past Medical History: No History, Except For Hx Asthma: Yes Hx COPD: Yes History Of Psychiatric Problem: Yes - Bipolar Social History: Denies: smoking, alcohol use, drug use, other Review of Systems All Other Systems: negative except mentioned in HPI Physical Exam Vital Signs Date Time Temp Pulse Resp B/P (MAP) Pulse Ox O2 Delivery O2 Flow Rate FiO2 09/03/18 09:11 97.0 117 21 133/77 Room Air 09/03/18 09:26 92 09/03/18 09:26 92 09/03/18 11:21 2.0 Sp02 EP Interpretation: reviewed, normal Labs Laboratory Tests Test 09/04/18 18:30 Urine Opiates Screen Negative (NEGATIVE) Urine Barbiturates Screen Negative (NEGATIVE) Phencyclidine (PCP) Screen Negative (NEGATIVE) Urine Amphetamines Screen Negative (NEGATIVE) Urine Benzodiazepines Screen Negative (NEGATIVE) Urine Cocaine Screen Negative (NEGATIVE) Urine Marijuana (THC) Screen Negative (NEGATIVE) General Appearance: well appearing, no apparent distress, alert, obese Head: normocephalic EENT: PERRL/EOMI, normal ENT inspection Neck: supple Respiratory: normal breath sounds, no respiratory distress Cardiovascular: normal rate Gastrointestinal: normal inspection, non tender, soft, normal bowel sounds, non -distended Rectal: deferred Genitourinary: no CVA tenderness Musculoskeletal: normal inspection, back normal Neurologic: normal inspection, alert, oriented x3, responsive Psychiatric: normal inspection, judgement/insight normal, memory normal Skin: normal inspection, normal color, no rash, warm/dry, palpation normal, well hydrated Lymphatic: normal inspection, no adenopathy Current Medications Current Medications Medications (Trade) Dose Ordered Sig/Jason Route PRN Reason Start Time Stop Time Status Last Admin Dose Admin Al Hydroxide/Mg Hydroxide (Mylanta) 30 ml QIDPRN PRN ORAL Gastric Discomfort 09/05/18 10:30 10/05/18 10:29 09/05/18 10:40 Albuterol/ Ipratropium (Albuterol/ Ipratropium) 3 ml Q4HRT PRN HHN Shortness of Breath 09/03/18 16:30 09/08/18 16:29 Azithromycin (Zithromax) 250 mg DAILY ORAL 09/04/18 09:00 09/11/18 08:59 09/05/18 08:25 Ceftriaxone Sodium 1 gm/ Dextrose 55 ml @ 110 mls/hr Q24H IVPB 09/03/18 23:00 09/10/18 22:59 09/04/18 23:08 Docusate Sodium (Colace) 100 mg THREE TIMES A DAY ORAL 09/04/18 13:00 10/04/18 12:59 09/05/18 13:10 Ferrous Sulfate (Feosol) 325 mg THREE TIMES A DAY ORAL 09/04/18 18:00 10/04/18 17:59 09/05/18 13:10 Pantoprazole (Protonix) 40 mg EVERY 12 HOURS ORAL 09/04/18 21:00 10/04/18 20:59 09/05/18 08:25 Quetiapine Fumarate (SEROquel) 200 mg BEDTIME ORAL 09/03/18 21:00 10/03/18 20:59 09/04/18 21:09 GI: Plan Problems: (1) Abdominal pain (2) Iron deficiency anemia (3) GERD (gastroesophageal reflux disease) (4) Gastritis (5) Peptic ulcer disease (6) Gastroenteritis (7) Diarrhea (8) Dehydration Plan Endoscopy to be scheduled tomorrow to evaluate abdominal pain and anemia . -Regular diet now, n.p.o. at midnight. -Hold all blood thinners GI cocktail prn Ppi Venofer Electrolyte correction IV and p.o. hydration Zofran as needed, Reglan for persistent vomiting Follow labs We will follow with additional recommendations post procedure Patient refused colonoscopy at this time, can be done as outpatient Discussed with Dr. Mims. Thank you for this patient referral, we will follow. The patient was seen and examined at bedside and all new and available data was reviewed in the patients chart. I agree with the above findings, impression and plan. (Patient seen earlier today. Signature stamp does not reflect patient encounter time.). - MD Emelia Samuel,[facility] Sep 05, 2018 14:15
--- NOTE | 2018-09-05 14:48 | Nephrology Progress Note ---
Assessment/Plan Problem List: (1) Iron deficiency anemia (2) Hypoalbuminemia (3) COPD exacerbation Assessment Anemia HypoAlbuminemia UTI COPD exacerbation ? CHF Psych Ds Plan Anemia quiroz- low Iron BP in check per Psych antibiotics pulm toilet hold off beta blockers due to COPD per orders Subjective ROS Limited/Unobtainable: No Objective Objective Last 24 Hour Vital Signs Date Time Temp Pulse Resp B/P (MAP) Pulse Ox O2 Delivery O2 Flow Rate FiO2 09/05/18 12:03 97.5 115 19 130/74 (92) 92 09/05/18 12:00 116 09/05/18 09:00 Nasal Cannula 2.0 09/05/18 08:24 98.1 107 20 127/74 (91) 09/05/18 08:00 107 09/05/18 07:48 107 16 Nasal Cannula 2.0 28 09/05/18 04:00 112 09/05/18 04:00 98.0 114 20 109/80 (90) 99 114 09/05/18 00:00 114 09/05/18 00:00 97.7 114 18 100/65 (77) 99 114 09/04/18 21:00 Nasal Cannula 2.0 09/04/18 20:00 110 09/04/18 20:00 98.0 104 18 100/60 (73) 99 104 09/04/18 19:54 105 20 Room Air 21 09/04/18 16:00 98.1 101 19 114/65 (81) 100 101 09/04/18 15:44 106 Intake and Output 09/04/18 09/05/18 18:59 06:59 Intake Total 1440 ml Balance 1440 ml Intake Oral 1440 ml # Voids 4 2 Laboratory Tests 09/04/18 18:30: Urine Opiates Screen Negative, Urine Barbiturates Screen Negative, Phencyclidine (PCP) Screen Negative, Urine Amphetamines Screen Negative, Urine Benzodiazepines Screen Negative, Urine Cocaine Screen Negative, Urine Marijuana (THC) Screen Negative Height (Feet): 5 Height (Inches): 3.00 Weight (Pounds): 260 General Appearance: no apparent distress Cardiovascular: tachycardia Respiratory/Chest: decreased breath sounds Abdomen: distended Objective no change Dante Patel MD Sep 05, 2018 14:48
--- NOTE | 2018-09-05 15:06 | Cardiac Electrophysiology PN ---
Assessment/Plan Problem List: (1) Sinus pause (2) Obstructive sleep apnea (3) Abdominal pain (4) Iron deficiency anemia (5) COPD exacerbation (6) Bipolar 1 disorder Status: stable, not improved Status Narrative Ms. Sage has abdominal c/o - pain, nausea and is noted to have Fe deficiency w/ mild anemia. GI evaluation noted. She has not had further sinus pauses on telemetry. Clonidine has been dcd .Suspect obstructive sleep apnea contributing to bradyarrhythmia. Assessment/Plan Plan for UGI endoscopy noted per GI. Continue telemetry. Remain off clonidine and any negative dromotropic/ chonotropic agents ECHO pending to evaluate LV/RV function, PA pressures, valves. Would favor evaluation for MOY and CPAP if indicated. Records requested from [facility] for pt's recent hospitalization there. Subjective ROS Limited/Unobtainable: No Subjective Cardiac EP Pt w/ nausea, abd pain. No dizziness or palpitations Events noted . Objective Last 24 Hour Vital Signs Date Time Temp Pulse Resp B/P (MAP) Pulse Ox O2 Delivery O2 Flow Rate FiO2 09/05/18 12:03 97.5 115 19 130/74 (92) 92 09/05/18 12:00 116 09/05/18 09:00 Nasal Cannula 2.0 09/05/18 08:24 98.1 107 20 127/74 (91) 09/05/18 08:00 107 09/05/18 07:48 107 16 Nasal Cannula 2.0 28 09/05/18 04:00 112 09/05/18 04:00 98.0 114 20 109/80 (90) 99 114 09/05/18 00:00 114 09/05/18 00:00 97.7 114 18 100/65 (77) 99 114 09/04/18 21:00 Nasal Cannula 2.0 09/04/18 20:00 110 09/04/18 20:00 98.0 104 18 100/60 (73) 99 104 09/04/18 19:54 105 20 Room Air 21 09/04/18 16:00 98.1 101 19 114/65 (81) 100 101 09/04/18 15:44 106 General Appearance: WD/WN, no apparent distress, alert EENT: PERRL/EOMI, pharynx normal Neck: non-tender, no JVD Rhythm: ST Cardiovascular: regular rhythm, no gallop/murmur, tachycardia Respiratory/Chest: lungs clear Abdomen: normal bowel sounds, non tender, soft, no mass Extremities: no swelling Intake and Output 09/04/18 09/05/18 19:00 07:00 Intake Total 1440 ml Balance 1440 ml Intake Oral 1440 ml # Voids 4 2 Laboratory Tests Test 09/04/18 18:30 Urine Opiates Screen Negative (NEGATIVE) Urine Barbiturates Screen Negative (NEGATIVE) Phencyclidine (PCP) Screen Negative (NEGATIVE) Urine Amphetamines Screen Negative (NEGATIVE) Urine Benzodiazepines Screen Negative (NEGATIVE) Urine Cocaine Screen Negative (NEGATIVE) Urine Marijuana (THC) Screen Negative (NEGATIVE) Microbiology Date/Time Source Procedure Growth Status 09/03/18 10:45 Blood Blood Culture - Preliminary NO GROWTH AFTER 24 HOURS Resulted 09/03/18 10:30 Blood Blood Culture - Preliminary NO GROWTH AFTER 24 HOURS Resulted 09/03/18 09:40 Urine,Clean Catch Urine Culture - Preliminary Mixed Urogenital Contaminants Resulted Jillian Ca MD Sep 05, 2018 15:06
--- NOTE | 2018-09-05 15:42 | Infectious Diseases Prog Note ---
Assessment/Plan Assessment/Plan A; 1. Sepsis with leukocytosis and tachycardia. 2. COPD exacerbation. 3. Morbid obesity. 4. Bipolar disorder. 5. Anemia.Iron deficiency 6. diarrhea RECOMMENDATION: 1. Continue with ceftriaxone. , hold Zithromax 2. We will continue with bronchodilators 3. We will follow up the labs. Subjective ROS Limited/Unobtainable: Yes Constitutional: Reports: no symptoms Respiratory: Reports: no symptoms Gastrointestinal/Abdominal: Reports: diarrhea, other - abdominal discomfort Genitourinary: Reports: no symptoms Allergies: Coded Allergies: PEANUT (Verified Allergy, Intermediate, hives, 09/03/18) TOMATO (Verified Allergy, Intermediate, hives, 09/03/18) [place] (Verified Allergy, Unknown, hives, 09/03/18) SULFA (SULFONAMIDE ANTIBIOTICS) (Verified Allergy, Unknown, 09/03/18) Objective Vital Signs Last 24 Hour Vital Signs Date Time Temp Pulse Resp B/P (MAP) Pulse Ox O2 Delivery O2 Flow Rate FiO2 09/05/18 12:03 97.5 115 19 130/74 (92) 92 09/05/18 12:00 116 09/05/18 09:00 Nasal Cannula 2.0 09/05/18 08:24 98.1 107 20 127/74 (91) 09/05/18 08:00 107 09/05/18 07:48 107 16 Nasal Cannula 2.0 28 09/05/18 04:00 112 09/05/18 04:00 98.0 114 20 109/80 (90) 99 114 09/05/18 00:00 114 09/05/18 00:00 97.7 114 18 100/65 (77) 99 114 09/04/18 21:00 Nasal Cannula 2.0 09/04/18 20:00 110 09/04/18 20:00 98.0 104 18 100/60 (73) 99 104 09/04/18 19:54 105 20 Room Air 21 09/04/18 16:00 98.1 101 19 114/65 (81) 100 101 09/04/18 15:44 106 Height (Feet): 5 Height (Inches): 2.50 Weight (Pounds): 261 General Appearance: other - obese Respiratory/Chest: lungs clear Cardiovascular: tachycardia Abdomen: soft, non tender Neurologic/Psychiatric: alert, responsive Microbiology Date/Time Source Procedure Growth Status 09/03/18 10:45 Blood Blood Culture - Preliminary NO GROWTH AFTER 24 HOURS Resulted 09/03/18 10:30 Blood Blood Culture - Preliminary NO GROWTH AFTER 24 HOURS Resulted 09/03/18 09:40 Urine,Clean Catch Urine Culture - Preliminary Mixed Urogenital Contaminants Resulted Laboratory Tests Test 09/04/18 18:30 Urine Opiates Screen Negative (NEGATIVE) Urine Barbiturates Screen Negative (NEGATIVE) Phencyclidine (PCP) Screen Negative (NEGATIVE) Urine Amphetamines Screen Negative (NEGATIVE) Urine Benzodiazepines Screen Negative (NEGATIVE) Urine Cocaine Screen Negative (NEGATIVE) Urine Marijuana (THC) Screen Negative (NEGATIVE) Current Medications Medications (Trade) Dose Ordered Sig/Jason Route PRN Reason Start Time Stop Time Status Last Admin Dose Admin Al Hydroxide/Mg Hydroxide (Mylanta) 30 ml QIDPRN PRN ORAL Gastric Discomfort 09/05/18 10:30 10/05/18 10:29 09/05/18 10:40 Albuterol/ Ipratropium (Albuterol/ Ipratropium) 3 ml Q4HRT PRN HHN Shortness of Breath 09/03/18 16:30 09/08/18 16:29 Azithromycin (Zithromax) 250 mg DAILY ORAL 09/04/18 09:00 09/11/18 08:59 09/05/18 08:25 Ceftriaxone Sodium 1 gm/ Dextrose 55 ml @ 110 mls/hr Q24H IVPB 09/03/18 23:00 09/10/18 22:59 09/04/18 23:08 Docusate Sodium (Colace) 100 mg THREE TIMES A DAY ORAL 09/04/18 13:00 10/04/18 12:59 09/05/18 13:10 Ferrous Sulfate (Feosol) 325 mg THREE TIMES A DAY ORAL 09/04/18 18:00 10/04/18 17:59 09/05/18 13:10 Pantoprazole (Protonix) 40 mg EVERY 12 HOURS ORAL 09/04/18 21:00 10/04/18 20:59 09/05/18 08:25 Quetiapine Fumarate (SEROquel) 200 mg BEDTIME ORAL 09/03/18 21:00 10/03/18 20:59 09/04/18 21:09 Howie Sams MD Sep 05, 2018 15:42
--- NOTE | 2018-09-05 15:59 | NUR ---
Social Service Note MARITZA spoke with Radha [facility] [phone]. Per Radha patient has exhausted all resources in the [place] area. Patient was recently in a [facility] program which she walked away from. Patient has an extensive history of hospital/psych hospital hopping as a form of housing. Patient is non-complaint with medication management and MD appointments. Patient has a history of substance abuse. Radha states patient has a payee service that can assist with payments to a board and care. Radha states however patient always finds a reason why she doesn't like it and then leaves. Radha states patient also moves between men as a form of housing. Per Radha patient doesn't utilize shelters but will reside in hotels. Will continue to monitor.
[2018-09-05] MEDS ORDERED: Metoclopramide 10mg/2ml Inj IVP PRN (16:00)
[2018-09-05 16:05] VITALS: BP 137/66
--- NOTE | 2018-09-05 16:18 | Cardiology Report ---
APPROVED REPORT EXAM: Two-dimensional and M-mode echocardiogram with Doppler and color Doppler. INDICATION Congestive Heart Failure M-Mode DIMENSIONS IVSd1.1 (0.7-1.1cm)Left Atrium (MM)3.1 (1.6-4.0cm) LVDd3.9 (3.5-5.6cm)Aortic Root2.7 (2.0-3.7cm) PWd1.2 (0.7-1.1cm)Aortic Cusp Exc.1.8 (1.5-2.0cm) IVSs1.4 cm LVDs2.7 (2.5-4.0cm) PWs1.6 cm Normal left ventricular chamber size, systolic function and wall motion . Left ventricular ejection fraction estimated to be 60-65%. No evidence of left ventricular hypertrophy . Small posterior pericardial effusion. All other cardiac chamber sizes are within normal limits. Focal aortic valve sclerosis with normal cusp excursion. Mildly Thickened mitral valve leaflets with normal excursion. Pulmonic valve not well visualized. Normal tricuspid valve structure. IVC at normal size with physiologic collapse . A color flow and spectral Doppler study was performed and revealed: No aortic insufficiency . Mild mitral regurgitation. Mitral diastolic velocities suggest reduced left ventricular relaxation c/w mild LV diastolic dysfunction (Grade I ). Mild tricuspid regurgitation. Tricuspid systolic velocities suggests peak right ventricular systolic pressure of 47mmHg,consistent with moderate pulmonary hypertension . Trace pulmonic regurgitation present . Mild pulmonic regurgitation .
--- NOTE | 2018-09-05 17:10 | General Progress Note ---
Assessment/Plan Assessment/Plan Assessment and Recs: # Anemia of iron deficiency, ferritin at this time is decreased, is <100, has been started on iron, is 59 --> Anemia workup has been reviewed --> No evidence of hemolysis is noted, peripheral smear has been reviewed. --> Hgb goal >7. Transfuse prn. --> Po ferrous sulfate has been started --> Medications have been reviewed --> evaluate with Gi team prn, endoscopy 09/06 --> transfuse if hgb is < 7 (will trend CBC daily) # Leukocytois is likely related to stress reaction/infection --> trend wbc, 12k # COPD exacerbation --> on, abx, breathing treatments on prn basis # Electrolyte disorder --> as per renal # Psych disorder --> as per psych # Trachycardia is likely related to hemodilution --> appears improved The timing of this note does not necessarily reflect the time of the patient was seen. Greatly appreciate consultation! Subjective Constitutional: Denies: no symptoms, chills, diaphoresis, fever, malaise, weakness, other HEENT: Denies: no symptoms, eye pain, blurred vision, tearing, double vision, ear pain, ear discharge, nose pain, nose congestion, throat pain, throat swelling, mouth pain, mouth swelling, other Gastrointestinal/Abdominal: Denies: no symptoms, abdomen distended, abdominal pain, black stools, tarry stools, blood in stool, constipated, diarrhea, difficulty swallowing, nausea, poor appetite, poor fluid intake, rectal bleeding , vomiting, other Genitourinary: Denies: no symptoms, burning, discharge, frequency, flank pain, hematuria, incontinence, pain, urgency, other Neurologic/Psychiatric: Denies: no symptoms, anxiety, depressed, emotional problems, headache, numbness, paresthesia, pre-existing deficit, seizure, tingling, tremors, weakness, other Endocrine: Denies: no symptoms, excessive sweating, flushing, intolerance to cold, intolerance to heat, increased hunger, increased thirst, increased urine, unexplained weight gain, unexplained weight loss, other Allergies: Coded Allergies: PEANUT (Verified Allergy, Intermediate, hives, 09/03/18) [place] (Verified Allergy, Intermediate, hives, 09/03/18) [place] (Verified Allergy, Unknown, hives, 09/03/18) SULFA (SULFONAMIDE ANTIBIOTICS) (Verified Allergy, Unknown, 09/03/18) Subjective 09/05: no events tomorrow is endoscopy, no bleeding, hgb 10 Objective Last 24 Hour Vital Signs Date Time Temp Pulse Resp B/P (MAP) Pulse Ox O2 Delivery O2 Flow Rate FiO2 09/05/18 16:05 97.9 120 20 137/66 (89) 92 09/05/18 16:00 119 09/05/18 12:03 97.5 115 19 130/74 (92) 92 09/05/18 12:00 116 09/05/18 09:00 Nasal Cannula 2.0 09/05/18 08:24 98.1 107 20 127/74 (91) 09/05/18 08:00 107 09/05/18 07:48 107 16 Nasal Cannula 2.0 28 09/05/18 04:00 112 09/05/18 04:00 98.0 114 20 109/80 (90) 99 114 09/05/18 00:00 114 09/05/18 00:00 97.7 114 18 100/65 (77) 99 114 09/04/18 21:00 Nasal Cannula 2.0 09/04/18 20:00 110 09/04/18 20:00 98.0 104 18 100/60 (73) 99 104 09/04/18 19:54 105 20 Room Air 21 Intake and Output 09/04/18 09/05/18 19:00 07:00 Intake Total 1440 ml Balance 1440 ml Intake Oral 1440 ml # Voids 4 2 Laboratory Tests 09/04/18 18:30: Urine Opiates Screen Negative, Urine Barbiturates Screen Negative, Phencyclidine (PCP) Screen Negative, Urine Amphetamines Screen Negative, Urine Benzodiazepines Screen Negative, Urine Cocaine Screen Negative, Urine Marijuana (THC) Screen Negative Height (Feet): 5 Height (Inches): 2.50 Weight (Pounds): 261 Objective Physical Exam: Vitals: reviewed General Appearance: NAD HEENT: normocephalic, atraumatic Neck: non-tender, normal alignment Respiratory/Chest: ++ sob noted Cardiovascular/Chest: normal peripheral pulses, normal rate Abdomen: normal bowel sounds, soft, nontender Extremities: normal range of motion Jackson Goff MD Sep 05, 2018 17:10
--- NOTE | 2018-09-05 18:11 | Cardiology Report ---
APPROVED REPORT EKG Measurement Heart [id number] Sinus tachycardia Biatrial enlargement Abnormal ECG
--- NOTE | 2018-09-05 19:20 | NUR ---
NURSE NOTES: Received report from megan Rn/ Nima RN, pt. in bed awake, A?O x's4- able to make needs known, no signs or symptoms of acute cardiac or respiratory distress noted, sitter at bedside, bed alarm on side rails up x's3 and safety brakes engaged, bed in low position and locked in position, pt. appears to be sating well on room air- no distress noted, pt. appears to be clean and dry, pt. appears to have steady gait when ambulating- but aware to ask for assistance, left AC 20G IV intact and patent- IV intact and patent, safety measures continued, continue with plan of care.
--- NOTE | 2018-09-05 19:30 | NUR ---
HAND-OFF: Report given to GEE Templeton. No acute distress or SOB noted for the patient. Saftey of the patient checked again. Endorsed plan of care.
[2018-09-05 20:00] VITALS: BP 118/69
[2018-09-05] MEDS: QUEtiapine 200mg tab ORAL SCH (20:04)
--- NOTE | 2018-09-05 21:48 | General Progress Note ---
Assessment/Plan Problem List: (1) Bipolar 1 disorder ICD Codes: F31.9 - Bipolar disorder, unspecified SNOMED: 699733000 (2) COPD exacerbation ICD Codes: J44.1 - Chronic obstructive pulmonary disease with (acute) exacerbation SNOMED: 509536915 (3) Iron deficiency anemia ICD Codes: D50.9 - Iron deficiency anemia, unspecified SNOMED: 37751657 (4) Dehydration ICD Codes: E86.0 - Dehydration SNOMED: 97142559 (5) Gastritis ICD Codes: K29.70 - Gastritis, unspecified, without bleeding SNOMED: 4919464 (6) Peptic ulcer disease ICD Codes: K27.9 - Peptic ulcer, site unspecified, unspecified as acute or chronic, without hemorrhage or perforation SNOMED: 89688371 (7) GERD (gastroesophageal reflux disease) ICD Codes: K21.9 - Gastro-esophageal reflux disease without esophagitis SNOMED: 153040579 (8) Sinus pause ICD Codes: I45.5 - Other specified heart block SNOMED: 76718588 Status: progressing Assessment/Plan afebrile psych patient dehydration improving gerd anemia reivewed chart and labs copd exac no wheezing Subjective ROS Limited/Unobtainable: Yes Allergies: Coded Allergies: PEANUT (Verified Allergy, Intermediate, hives, 09/03/18) [place] (Verified Allergy, Intermediate, hives, 09/03/18) [place] (Verified Allergy, Unknown, hives, 09/03/18) SULFA (SULFONAMIDE ANTIBIOTICS) (Verified Allergy, Unknown, 09/03/18) Objective Last 24 Hour Vital Signs Date Time Temp Pulse Resp B/P (MAP) Pulse Ox O2 Delivery O2 Flow Rate FiO2 09/05/18 20:06 114 18 Room Air 21 09/05/18 20:00 98.9 112 18 118/69 (85) 94 09/05/18 16:05 97.9 120 20 137/66 (89) 92 09/05/18 16:00 119 09/05/18 12:03 97.5 115 19 130/74 (92) 92 09/05/18 12:00 116 09/05/18 09:00 Nasal Cannula 2.0 09/05/18 08:24 98.1 107 20 127/74 (91) 09/05/18 08:00 107 09/05/18 07:48 107 16 Nasal Cannula 2.0 28 09/05/18 04:00 112 09/05/18 04:00 98.0 114 20 109/80 (90) 99 114 09/05/18 00:00 114 09/05/18 00:00 97.7 114 18 100/65 (77) 99 114 Intake and Output 09/04/18 09/05/18 19:00 07:00 Intake Total 1440 ml Balance 1440 ml Intake Oral 1440 ml # Voids 4 2 Height (Feet): 5 Height (Inches): 2.50 Weight (Pounds): 261 Neck: supple Cardiovascular: normal rate Respiratory/Chest: lungs clear Abdomen: soft Brendan Gregory MD Sep 05, 2018 21:48
[2018-09-05] MEDS: cefTRIAXone 1 GM in D5W 55 ML IVPB SCH (22:46)
[2018-09-06] VITALS (10 sets, daily range): BP systolic 102–146; BP diastolic 61–98
[2018-09-06 04:43] LABS: BASOPHILS % (AUTO) 1.2 % (0.0-2.0); EOSINOPHILS % (AUTO) 2.8 % (0.0-3.0); HEMATOCRIT 35.3 % (37.0-47.0); HEMOGLOBIN 10.9 G/DL (12.0-16.0); LYMPHOCYTES % (AUTO) 14.1 % (20.0-45.0); MEAN CORPUSCULAR VOLUME 89 FL (80-99); MONOCYTES % (AUTO) 7.4 % (1.0-10.0); NEUTROPHILS % (AUTO) 74.5 % (45.0-75.0); PLATELET COUNT 275 K/UL (150-450); RED BLOOD COUNT 3.95 M/UL (4.20-5.40)
[2018-09-06 05:01] LABS: ANION GAP 3 mmol/L (5-15); BLOOD UREA NITROGEN 11 mg/dL (7-18); CALCIUM 8.7 MG/DL (8.5-10.1); CARBON DIOXIDE 38 MMOL/L (21-32); CHLORIDE 100 MMOL/L (98-107); CREATININE 0.4 MG/DL (0.55-1.30); PHOSPHORUS 3.4 MG/DL (2.5-4.9); POTASSIUM 3.6 MMOL/L (3.5-5.1); SODIUM 141 MMOL/L (136-145)
--- NOTE | 2018-09-06 07:20 | NUR ---
HAND-OFF: Report given to Alexandra RN, pt. remains stable and no signs of distress noted.
--- NOTE | 2018-09-06 07:45 | NUR ---
NURSE NOTES: Received report from cnc machinist 2nd shift RN. Patient asleep in bed. On room air, no signs and symptoms of respiratory distress. Sitter at bedside. Bed in low position, bed alarm on, both side rails up. Patient NPO for EGD today.
[2018-09-06] MEDS: Docusate 100mg cap ORAL SCH ×4 (09:00→17:42)
--- NOTE | 2018-09-06 09:20 | NUR ---
Patient awake in bed, oriented x 4. On 2L NC, no signs of respiratory distress. Vitals stable. NPO for procedure. 20 gauge IV on left AC intact, patent, flushed, dressing intact. Will hold 0900 medications for procedure.
--- NOTE | 2018-09-06 09:51 | NUR ---
CASE MANAGEMENT:REVIEW 09/06/18 SI: COPD EXACERBATION 99.7 104 22 146/98 94% ON RA H/H-10.9/35.3 IS: IV ROCEPHIN Q24 PROTONIX PO Q12 IRON PO TID SEROQUEL PO QHS DUONEB HHN Q4HRS RTC : TO TELEMETRY DCP: HOMELESS? PLAN: OFFER SNF PLACEMENT UPON DISCHARGE
--- NOTE | 2018-09-06 10:12 | Anethesia Preoperative Eval ---
Anesthesia Pre-op PMH/ROS General Date of Evaluation: Sep 06, 2018 ASA Score: ASA 3 Mallampati Score Class I : Soft palate, uvula, fauces, pillars visible Class II: Soft palate, uvula, fauces visible Class III: Soft palate, base of uvula visible Class IV: Only hard plate visible Mallampati Classification: Class III Surgeon: Prasanna Diagnosis: Abdominal pain Surgical Procedure: EGD diagnostic Anesthesia History: none Social History: smoking Family History: no anesthesia problems Allergies: Coded Allergies: [place]UT (Verified Allergy, Intermediate, hives, 09/03/18) [place] (Verified Allergy, Intermediate, hives, 09/03/18) [place] (Verified Allergy, Unknown, hives, 09/03/18) SULFA (SULFONAMIDE ANTIBIOTICS) (Verified Allergy, Unknown, 09/03/18) Medications: see eMAR Patient NPO?: Yes NPO Date: Sep 06, 2018 NPO Time: 00:00 Past Medical History Cardiovascular: Reports: other - tachycardia, sinus pause; Denies: HTN, CAD, MD, valve dz, arrhythmia Pulmonary: Reports: COPD, MOY; Denies: asthma, other Gastrointestinal/Genitourinary: Reports: GERD, other - PUD; Denies: CRI, ESRD Neurologic/Psychiatric: Reports: other - Bipolar I; Denies: dementia, CVA, depression/anxiety, TIA Endocrine: Denies: DM, hypothyroidism, steroids, other HEENT: Denies: cataract (L), cataract (R), glaucoma, UNGA (L), UNGA (R), other Hematology/Immune: Reports: anemia; Denies: DVT, bleeding disorder, other Musculoskeletal/Integumentary: Denies: OA, RA, DJD, DDD, edema, other Other: obesity PMH Narrative: as noted above PSxH Narrative: c/s Anesthesia Pre-op Phys. Exam Physician Exam Last Vital Signs Date Time Temp Pulse Resp B/P (MAP) Pulse Ox O2 Delivery O2 Flow Rate FiO2 09/06/18 09:00 Nasal Cannula 2.0 09/06/18 08:57 108 18 21 09/06/18 08:00 99.7 146/98 (114) 94 Constitutional: NAD Neurologic: other - alert & oriented Cardiovascular: RRR Respiratory: CTA Gastrointestinal: S/NT/ND, other - Morbidly obese Airway Exam Mallampati Score: Class III MO: full Neck: short thick neck TMD: > 3 FB ROM: full Teeth: intact Dentures: no upper, no lower Anesthesia Pre-op A/P Labs Hematology Test 09/06/18 04:20 White Blood Count 7.0 K/UL (4.8-10.8) Red Blood Count 3.95 M/UL (4.20-5.40) L Hemoglobin 10.9 G/DL (12.0-16.0) L Hematocrit 35.3 % (37.0-47.0) L Mean Corpuscular Volume 89 FL (80-99) Mean Corpuscular Hemoglobin 27.6 PG (27.0-31.0) Mean Corpuscular Hemoglobin Concent 30.9 G/DL (32.0-36.0) L Red Cell Distribution Width 16.0 % (11.6-14.8) H Platelet Count 275 K/UL (150-450) Mean Platelet Volume 6.8 FL (6.5-10.1) Neutrophils (%) (Auto) 74.5 % (45.0-75.0) Lymphocytes (%) (Auto) 14.1 % (20.0-45.0) L Monocytes (%) (Auto) 7.4 % (1.0-10.0) Eosinophils (%) (Auto) 2.8 % (0.0-3.0) Basophils (%) (Auto) 1.2 % (0.0-2.0) Coagulation Test 09/06/18 04:20 Prothrombin Time 10.6 SEC (9.30-11.50) Prothromb Time International Ratio 1.0 (0.9-1.1) Activated Partial Thromboplast Time 30 SEC (23-33) Chemistry Test 09/06/18 04:20 Sodium Level 141 MMOL/L (136-145) Potassium Level 3.6 MMOL/L (3.5-5.1) Chloride Level 100 MMOL/L (98-107) Carbon Dioxide Level 38 MMOL/L (21-32) H Anion Gap 3 mmol/L (5-15) L Blood Urea Nitrogen 11 mg/dL (7-18) Creatinine 0.4 MG/DL (0.55-1.30) L Estimat Glomerular Filtration Rate > 60 mL/min (>60) Glucose Level 94 MG/DL (74-106) Calcium Level 8.7 MG/DL (8.5-10.1) Phosphorus Level 3.4 MG/DL (2.5-4.9) Magnesium Level 1.8 MG/DL (1.8-2.4) Studies Pre-op Studies: EKG - sinus pause, CXR - mild pulmonary interstitial congestion , echo - NL LV size and function, small pericardial effusion, mod PHTN Risk Assessment & Plan Assessment: ASA 3, ok to proceed Plan: MAC Status Change Before Surgery: No Pre-Antibiotics Given Within 1 Hr of Incision: Madisyn Fair [employer]OR BI[employer] MECH[employer]IC Sep 06, 2018 10:12
--- NOTE | 2018-09-06 10:27 | Infectious Diseases Prog Note ---
Assessment/Plan Assessment/Plan A; 1. Sepsis with leukocytosis and tachycardia. 2. COPD exacerbation. 3. Morbid obesity. 4. Bipolar disorder. 5. Anemia.Iron deficiency 6. diarrhea resolved RECOMMENDATION: 1. Continue with ceftriaxone. , 2. We will continue with bronchodilators 3. We will follow up the labs. Subjective ROS Limited/Unobtainable: No Constitutional: Reports: no symptoms Respiratory: Reports: no symptoms Gastrointestinal/Abdominal: Reports: no symptoms, other - NPO for procedure Genitourinary: Reports: no symptoms Allergies: Coded Allergies: [place]UT (Verified Allergy, Intermediate, hives, 09/03/18) [place] (Verified Allergy, Intermediate, hives, 09/03/18) [place] (Verified Allergy, Unknown, hives, 09/03/18) SULFA (SULFONAMIDE ANTIBIOTICS) (Verified Allergy, Unknown, 09/03/18) Objective Vital Signs Last 24 Hour Vital Signs Date Time Temp Pulse Resp B/P (MAP) Pulse Ox O2 Delivery O2 Flow Rate FiO2 09/06/18 09:00 Nasal Cannula 2.0 09/06/18 08:57 108 18 Room Air 21 09/06/18 08:00 99.7 104 22 146/98 (114) 94 09/06/18 07:39 112 09/06/18 04:00 2.0 09/06/18 04:00 97.5 117 18 118/68 (85) 98 09/06/18 04:00 113 09/06/18 00:00 120 09/06/18 00:00 2.0 09/06/18 00:00 97.7 123 16 110/61 (77) 96 09/05/18 23:00 2.0 09/05/18 21:00 Nasal Cannula 2.0 09/05/18 20:06 114 18 Room Air 21 09/05/18 20:00 98.9 112 18 118/69 (85) 94 09/05/18 20:00 123 09/05/18 16:05 97.9 120 20 137/66 (89) 92 09/05/18 16:00 119 09/05/18 12:03 97.5 115 19 130/74 (92) 92 09/05/18 12:00 116 Height (Feet): 5 Height (Inches): 2.00 Weight (Pounds): 260 General Appearance: no acute distress HEENT: mucous membranes moist Respiratory/Chest: lungs clear Cardiovascular: normal rate Abdomen: soft, non tender Extremities: no edema Neurologic/Psychiatric: alert, responsive Microbiology Date/Time Source Procedure Growth Status 09/03/18 10:45 Blood Blood Culture - Preliminary NO GROWTH AFTER 48 HOURS Resulted 09/03/18 10:30 Blood Blood Culture - Preliminary NO GROWTH AFTER 48 HOURS Resulted Laboratory Tests Test 09/06/18 04:20 White Blood Count 7.0 K/UL (4.8-10.8) Red Blood Count 3.95 M/UL (4.20-5.40) L Hemoglobin 10.9 G/DL (12.0-16.0) L Hematocrit 35.3 % (37.0-47.0) L Mean Corpuscular Volume 89 FL (80-99) Mean Corpuscular Hemoglobin 27.6 PG (27.0-31.0) Mean Corpuscular Hemoglobin Concent 30.9 G/DL (32.0-36.0) L Red Cell Distribution Width 16.0 % (11.6-14.8) H Platelet Count 275 K/UL (150-450) Mean Platelet Volume 6.8 FL (6.5-10.1) Neutrophils (%) (Auto) 74.5 % (45.0-75.0) Lymphocytes (%) (Auto) 14.1 % (20.0-45.0) L Monocytes (%) (Auto) 7.4 % (1.0-10.0) Eosinophils (%) (Auto) 2.8 % (0.0-3.0) Basophils (%) (Auto) 1.2 % (0.0-2.0) Prothrombin Time 10.6 SEC (9.30-11.50) Prothromb Time International Ratio 1.0 (0.9-1.1) Activated Partial Thromboplast Time 30 SEC (23-33) Sodium Level 141 MMOL/L (136-145) Potassium Level 3.6 MMOL/L (3.5-5.1) Chloride Level 100 MMOL/L (98-107) Carbon Dioxide Level 38 MMOL/L (21-32) H Anion Gap 3 mmol/L (5-15) L Blood Urea Nitrogen 11 mg/dL (7-18) Creatinine 0.4 MG/DL (0.55-1.30) L Estimat Glomerular Filtration Rate > 60 mL/min (>60) Glucose Level 94 MG/DL (74-106) Calcium Level 8.7 MG/DL (8.5-10.1) Phosphorus Level 3.4 MG/DL (2.5-4.9) Magnesium Level 1.8 MG/DL (1.8-2.4) Current Medications Medications (Trade) Dose Ordered Sig/Jason Route PRN Reason Start Time Stop Time Status Last Admin Dose Admin Al Hydroxide/Mg Hydroxide (Mylanta) 30 ml QIDPRN PRN ORAL Gastric Discomfort 09/05/18 10:30 10/05/18 10:29 09/05/18 10:40 Albuterol/ Ipratropium (Albuterol/ Ipratropium) 3 ml Q4HRT PRN HHN Shortness of Breath 09/03/18 16:30 09/08/18 16:29 Ceftriaxone Sodium 1 gm/ Dextrose 55 ml @ 110 mls/hr Q24H IVPB 09/03/18 23:00 09/10/18 22:59 09/05/18 22:46 Docusate Sodium (Colace) 100 mg THREE TIMES A DAY ORAL 09/04/18 13:00 10/04/18 12:59 09/05/18 13:10 Ferrous Sulfate (Feosol) 325 mg THREE TIMES A DAY ORAL 09/04/18 18:00 10/04/18 17:59 09/05/18 17:31 Metoclopramide HCl (Reglan) 10 mg Q6H PRN IVP Nausea & Vomiting 09/05/18 16:00 10/05/18 15:59 Pantoprazole (Protonix) 40 mg EVERY 12 HOURS ORAL 09/04/18 21:00 10/04/18 20:59 09/05/18 20:04 Quetiapine Fumarate (SEROquel) 200 mg BEDTIME ORAL 09/03/18 21:00 10/03/18 20:59 09/05/18 20:04 Howie Sams MD Sep 06, 2018 10:27
--- NOTE | 2018-09-06 10:37 | Pre-Procedure Note/Attestation ---
Pre-Procedure Note/Attestation Complete Prior to Procedure Planned Procedure: not applicable Procedure Narrative: egd Indications for Procedure Pre-Operative Diagnosis: gib Attestation I attest that I discussed the nature of the procedure; its benefits; risks and complications; and alternatives (and the risks and benefits of such alternatives ), prior to the procedure, with the patient (or the patient's legal sales utility representative). I attest that, if there was a reasonable possibility of needing a blood transfusion, the patient (or the patient's legal sales utility representative) was given the [facility] standardized written summary, pursuant to the Yasmany Johnie Blood Safety Act ([place] Health and Safety Code # 1645, as amended). I attest that I re-evaluated the patient just prior to the surgery and that there has been no change in the patient's H&P, except as documented below: Gurpreet Mims MD Sep 06, 2018 10:37
--- NOTE | 2018-09-06 10:40 | NUR ---
NURSE NOTES: Patient awake and alert. Transported by GI staff down to GI lab for procedure (EGD).
[2018-09-06] MEDS ORDERED: Ketamine 500mg Inj ONE (10:49)
[2018-09-06] MEDS ORDERED: NS 500ML IVPB ONE (10:58)
[2018-09-06] MEDS ORDERED: Lidocaine 1% MPF 10mg/ml 5ml ONE (11:00)
[2018-09-06] MEDS ORDERED: Glycopyrrolate 0.2mg/ml 1ml Vial ONE (11:00)
[2018-09-06] MEDS ORDERED: Propofol 200mg/20ml IV ONE (11:00)
[2018-09-06] MEDS ORDERED: Midazolam 2mg/2ml Inj ONE (11:02)
--- NOTE | 2018-09-06 11:18 | Endoscopy Procedure Note ---
Endoscopy Procedure Note General Indication for Procedure: vomiting Procedures Performed: EGD Operative Findings/Diagnosis: gastritis Specimen: yes Pt Tolerated Procedure Well: Yes Estimated Blood Loss: none Anesthesia Anesthesiologist: rowdy Anesthesia: MAC Inserted Devices Implant(s) used?: No GI Core Measures 50 yrs or older w/o bx or poly: Not Applicable 10yrs. F/U not recommended: Not Applicable Gurpreet Mims MD Sep 06, 2018 11:18
[2018-09-06] MEDS ORDERED: Albuterol ud Inhalation ONE (11:25)
--- NOTE | 2018-09-06 11:48 | Immediate Post-Op Evaluation ---
Immediate Post-Op Evalulation Immediate Post-Op Evalulation Procedure: EGD diagnostic Date of Evaluation: Sep 06, 2018 Time of Evaluation: 11:33 IV Fluids: 0.9 NS 250 ML Blood Pressure Systolic: 130 Blood Pressure Diastolic: 90 Pulse Rate: 118 Respiratory Rate: 22 O2 Sat by Pulse Oximetry: 96 Temperature (Fahrenheit): 97 Pain Score (1-10): 0 Nausea: No Vomiting: No Complications none Patient Status: awake, reacts, patent Hydration Status: adequate Given Within 1 Hr of Incision: Madisyn Fair CRNA Sep 06, 2018 11:48
--- NOTE | 2018-09-06 14:29 | NUR ---
RD ASSESSMENT & RECOMMENDATIONS SEE CARE ACTIVITY FOR COMPLETE ASSESSMENT DAILY ESTIMATED NEEDS: Needs based on Pulmonary, obese 67kg adj 20-25 kcals/kg 9449-2353 total kcals 1-1.5 g protein/kg 67-101 g total protein 25-30 mL/kg 4429-9894 total fluid mLs NUTRITION DIAGNOSIS: Obese r/t lifestyle? poor food choices? knowledge deficit? as evidenced by BMI 43, pt is 213% of IBW. CURRENT DIET: Regular PO DIET RECOMMENDATIONS: Cardiac diet ADDITIONAL RECOMMENDATIONS: 1) Obtain a standing weight as able + weekly weights 2) Diet edu as able 3) check lytes daily, replete as needed
--- NOTE | 2018-09-06 14:33 | General Progress Note ---
Assessment/Plan Assessment/Plan Assessment and Recs: # Anemia of iron deficiency, ferritin at this time is decreased, is <100, has been started on iron, is 59 --> Anemia workup has been reviewed --> No evidence of hemolysis is noted, peripheral smear has been reviewed. --> Hgb goal >7. Transfuse prn. --> Po ferrous sulfate has been started --> Medications have been reviewed --> evaluate with Gi team prn, endoscopy 09/06 --> transfuse if hgb is < 7 (will trend CBC daily) # Leukocytois is likely related to stress reaction/infection --> trend wbc, 12k # COPD exacerbation --> on, abx, breathing treatments on prn basis # Electrolyte disorder --> as per renal # Psych disorder --> as per psych # Trachycardia is likely related to hemodilution --> appears improved The timing of this note does not necessarily reflect the time of the patient was seen. Greatly appreciate consultation! Subjective HEENT: Denies: no symptoms, eye pain, blurred vision, tearing, double vision, ear pain, ear discharge, nose pain, nose congestion, throat pain, throat swelling, mouth pain, mouth swelling, other Cardiovascular: Denies: no symptoms, chest pain, edema, irregular heart rate, lightheadedness, palpitations, syncope, other Gastrointestinal/Abdominal: Denies: no symptoms, abdomen distended, abdominal pain, black stools, tarry stools, blood in stool, constipated, diarrhea, difficulty swallowing, nausea, poor appetite, poor fluid intake, rectal bleeding , vomiting, other Genitourinary: Denies: no symptoms, burning, discharge, frequency, flank pain, hematuria, incontinence, pain, urgency, other Neurologic/Psychiatric: Denies: no symptoms, anxiety, depressed, emotional problems, headache, numbness, paresthesia, pre-existing deficit, seizure, tingling, tremors, weakness, other Endocrine: Denies: no symptoms, excessive sweating, flushing, intolerance to cold, intolerance to heat, increased hunger, increased thirst, increased urine, unexplained weight gain, unexplained weight loss, other Hematologic/Lymphatic: Denies: no symptoms, anemia, easy bleeding, easy bruising, other Allergies: Coded Allergies: PEANUT (Verified Allergy, Intermediate, hives, 09/03/18) TOMATO (Verified Allergy, Intermediate, hives, 09/03/18) [place] (Verified Allergy, Unknown, hives, 09/03/18) SULFA (SULFONAMIDE ANTIBIOTICS) (Verified Allergy, Unknown, 09/03/18) Subjective 09/05: no events tomorrow is endoscopy, no bleeding, hgb 10 09/06: no events, no fevers of chills, is on ferrous sulfate, egd has been completed Objective Last 24 Hour Vital Signs Date Time Temp Pulse Resp B/P (MAP) Pulse Ox O2 Delivery O2 Flow Rate FiO2 09/06/18 12:27 100 09/06/18 12:25 98.2 99 22 103/66 (78) 99 99 09/06/18 11:50 109 22 127/82 99 Room Air 09/06/18 11:48 118 22 96 09/06/18 11:43 114 22 123/88 99 Room Air 09/06/18 11:38 117 22 128/62 99 Simple Mask 5 09/06/18 11:33 97.2 117 22 130/90 99 Simple Mask 5 09/06/18 09:00 Nasal Cannula 2.0 09/06/18 08:57 108 18 Room Air 21 09/06/18 08:00 99.7 104 22 146/98 (114) 94 09/06/18 07:39 112 09/06/18 04:00 2.0 09/06/18 04:00 97.5 117 18 118/68 (85) 98 09/06/18 04:00 113 09/06/18 00:00 120 09/06/18 00:00 2.0 09/06/18 00:00 97.7 123 16 110/61 (77) 96 09/05/18 23:00 2.0 09/05/18 21:00 Nasal Cannula 2.0 09/05/18 20:06 114 18 Room Air 21 09/05/18 20:00 98.9 112 18 118/69 (85) 94 09/05/18 20:00 123 09/05/18 16:05 97.9 120 20 137/66 (89) 92 09/05/18 16:00 119 Intake and Output 09/05/18 09/06/18 19:00 07:00 Intake Total 300 ml 55 ml Balance 300 ml 55 ml Intake Oral 300 ml IV Total 55 ml # Voids 2 4 # Bowel Movements 3 3 Laboratory Tests 09/06/18 04:20: White Blood Count 7.0, Red Blood Count 3.95L, Hemoglobin 10.9L, Hematocrit 35.3L , Mean Corpuscular Volume 89, Mean Corpuscular Hemoglobin 27.6, Mean Corpuscular Hemoglobin Concent 30.9L, Red Cell Distribution Width 16.0H, Platelet Count 275, Mean Platelet Volume 6.8, Neutrophils (%) (Auto) 74.5, Lymphocytes (%) (Auto) 14.1L, Monocytes (%) (Auto) 7.4, Eosinophils (%) (Auto) 2.8, Basophils (%) (Auto) 1.2, Prothrombin Time 10.6, Prothromb Time International Ratio 1.0, Activated Partial Thromboplast Time 30, Sodium Level 141, Potassium Level 3.6, Chloride Level 100, Carbon Dioxide Level 38H, Anion Gap 3L, Blood Urea Nitrogen 11, Creatinine 0.4L, Estimat Glomerular Filtration Rate > 60, Glucose Level 94, Calcium Level 8.7, Phosphorus Level 3.4, Magnesium Level 1.8 Height (Feet): 5 Height (Inches): 2.00 Weight (Pounds): 260 Objective Physical Exam: Vitals: reviewed General Appearance: NAD HEENT: normocephalic, atraumatic Neck: non-tender, normal alignment Respiratory/Chest: ++ sob noted Cardiovascular/Chest: normal peripheral pulses, normal rate Abdomen: normal bowel sounds, soft, nontender Extremities: normal range of motion Jackson Goff MD Sep 06, 2018 14:33
--- NOTE | 2018-09-06 15:23 | NUR ---
*-* INSURANCE *-* ALL CLINICALS AND REVIEWS HAVE BEEN FAXED TO: [facility] P- [phone] F- [phone]
[2018-09-06] MEDS ORDERED: NS 275ml ONE (15:57)
[2018-09-06] MEDS ORDERED: Tubing IV Secondary IV ONE (15:57)
--- NOTE | 2018-09-06 17:01 | NUR ---
HAND-OFF: Report given to Omaira BERNARDO.
--- NOTE | 2018-09-06 17:10 | Nephrology Progress Note ---
Assessment/Plan Problem List: (1) Iron deficiency anemia (2) Hypoalbuminemia (3) COPD exacerbation Assessment Anemia HypoAlbuminemia UTI COPD exacerbation ? CHF Psych Ds Plan Anemia quiroz- low Iron BP in check per Psych antibiotics pulm toilet hold off beta blockers due to COPD per orders Subjective ROS Limited/Unobtainable: No Constitutional: Reports: malaise Objective Objective Last 24 Hour Vital Signs Date Time Temp Pulse Resp B/P (MAP) Pulse Ox O2 Delivery O2 Flow Rate FiO2 09/06/18 16:00 98.6 103 20 102/67 (79) 98 103 09/06/18 12:27 100 09/06/18 12:25 98.2 99 22 103/66 (78) 99 99 09/06/18 11:50 109 22 127/82 99 Room Air 09/06/18 11:48 118 22 96 09/06/18 11:43 114 22 123/88 99 Room Air 09/06/18 11:38 117 22 128/62 99 Simple Mask 5 09/06/18 11:33 97.2 117 22 130/90 99 Simple Mask 5 09/06/18 09:00 Nasal Cannula 2.0 09/06/18 08:57 108 18 Room Air 21 09/06/18 08:00 99.7 104 22 146/98 (114) 94 09/06/18 07:39 112 09/06/18 04:00 2.0 09/06/18 04:00 97.5 117 18 118/68 (85) 98 09/06/18 04:00 113 09/06/18 00:00 120 09/06/18 00:00 2.0 09/06/18 00:00 97.7 123 16 110/61 (77) 96 09/05/18 23:00 2.0 09/05/18 21:00 Nasal Cannula 2.0 09/05/18 20:06 114 18 Room Air 21 09/05/18 20:00 98.9 112 18 118/69 (85) 94 09/05/18 20:00 123 Intake and Output 09/05/18 09/06/18 19:00 07:00 Intake Total 300 ml 55 ml Balance 300 ml 55 ml Intake Oral 300 ml IV Total 55 ml # Voids 2 4 # Bowel Movements 3 3 Laboratory Tests 09/06/18 04:20: White Blood Count 7.0, Red Blood Count 3.95L, Hemoglobin 10.9L, Hematocrit 35.3L , Mean Corpuscular Volume 89, Mean Corpuscular Hemoglobin 27.6, Mean Corpuscular Hemoglobin Concent 30.9L, Red Cell Distribution Width 16.0H, Platelet Count 275, Mean Platelet Volume 6.8, Neutrophils (%) (Auto) 74.5, Lymphocytes (%) (Auto) 14.1L, Monocytes (%) (Auto) 7.4, Eosinophils (%) (Auto) 2.8, Basophils (%) (Auto) 1.2, Prothrombin Time 10.6, Prothromb Time International Ratio 1.0, Activated Partial Thromboplast Time 30, Sodium Level 141, Potassium Level 3.6, Chloride Level 100, Carbon Dioxide Level 38H, Anion Gap 3L, Blood Urea Nitrogen 11, Creatinine 0.4L, Estimat Glomerular Filtration Rate > 60, Glucose Level 94, Calcium Level 8.7, Phosphorus Level 3.4, Magnesium Level 1.8 Height (Feet): 5 Height (Inches): 2.00 Weight (Pounds): 260 General Appearance: no apparent distress Cardiovascular: normal rate Respiratory/Chest: decreased breath sounds Abdomen: soft Objective no change Dante Patel MD Sep 06, 2018 17:10
--- NOTE | 2018-09-06 18:37 | Cardiac Electrophysiology PN ---
Assessment/Plan Problem List: (1) Sinus pause (2) Obstructive sleep apnea (3) Abdominal pain (4) Iron deficiency anemia (5) COPD exacerbation (6) Bipolar 1 disorder Status: stable, progressing Status Narrative Ms. Sage has not had further sinus pauses. Suspect prolonged pauses on adm were due to MOY and possibly clonidine. She is stable from cardiac standpoint. Assessment/Plan ECHO pending to evaluate LV, RV function, PA pressures. Would evaluate for MOY - may need evening CPAP Subjective ROS Limited/Unobtainable: No Subjective Cardiac EP Pt's abdominal symptoms have resolved. Endoscopy completed today - results noted. She continues to c/o intermittent dyspnea. No cough, CP palpitations, dizziness Objective Last 24 Hour Vital Signs Date Time Temp Pulse Resp B/P (MAP) Pulse Ox O2 Delivery O2 Flow Rate FiO2 09/06/18 16:00 98.6 103 20 102/67 (79) 98 103 09/06/18 15:34 96 09/06/18 12:27 100 09/06/18 12:25 98.2 99 22 103/66 (78) 99 99 09/06/18 11:50 109 22 127/82 99 Room Air 09/06/18 11:48 118 22 96 09/06/18 11:43 114 22 123/88 99 Room Air 09/06/18 11:38 117 22 128/62 99 Simple Mask 5 09/06/18 11:33 97.2 117 22 130/90 99 Simple Mask 5 09/06/18 09:00 Nasal Cannula 2.0 09/06/18 08:57 108 18 Room Air 21 09/06/18 08:00 99.7 104 22 146/98 (114) 94 09/06/18 07:39 112 09/06/18 04:00 2.0 09/06/18 04:00 97.5 117 18 118/68 (85) 98 09/06/18 04:00 113 09/06/18 00:00 120 09/06/18 00:00 2.0 09/06/18 00:00 97.7 123 16 110/61 (77) 96 09/05/18 23:00 2.0 09/05/18 21:00 Nasal Cannula 2.0 09/05/18 20:06 114 18 Room Air 21 09/05/18 20:00 98.9 112 18 118/69 (85) 94 4/11/19 20:00 123 General Appearance: WD/WN, no apparent distress, alert EENT: PERRL/EOMI, pharynx normal Neck: supple, no JVD Rhythm: NSR Cardiovascular: normal rate, regular rhythm, no gallop/murmur Respiratory/Chest: other - occ rhonchi bilat Abdomen: normal bowel sounds, non tender, soft Extremities: no swelling Intake and Output 09/05/18 09/06/18 18:59 06:59 Intake Total 300 ml 55 ml Balance 300 ml 55 ml Intake Oral 300 ml IV Total 55 ml # Voids 2 4 # Bowel Movements 3 3 Laboratory Tests Test 09/06/18 04:20 White Blood Count 7.0 K/UL (4.8-10.8) Red Blood Count 3.95 M/UL (4.20-5.40) L Hemoglobin 10.9 G/DL (12.0-16.0) L Hematocrit 35.3 % (37.0-47.0) L Mean Corpuscular Volume 89 FL (80-99) Mean Corpuscular Hemoglobin 27.6 PG (27.0-31.0) Mean Corpuscular Hemoglobin Concent 30.9 G/DL (32.0-36.0) L Red Cell Distribution Width 16.0 % (11.6-14.8) H Platelet Count 275 K/UL (150-450) Mean Platelet Volume 6.8 FL (6.5-10.1) Neutrophils (%) (Auto) 74.5 % (45.0-75.0) Lymphocytes (%) (Auto) 14.1 % (20.0-45.0) L Monocytes (%) (Auto) 7.4 % (1.0-10.0) Eosinophils (%) (Auto) 2.8 % (0.0-3.0) Basophils (%) (Auto) 1.2 % (0.0-2.0) Prothrombin Time 10.6 SEC (9.30-11.50) Prothromb Time International Ratio 1.0 (0.9-1.1) Activated Partial Thromboplast Time 30 SEC (23-33) Sodium Level 141 MMOL/L (136-145) Potassium Level 3.6 MMOL/L (3.5-5.1) Chloride Level 100 MMOL/L (98-107) Carbon Dioxide Level 38 MMOL/L (21-32) H Anion Gap 3 mmol/L (5-15) L Blood Urea Nitrogen 11 mg/dL (7-18) Creatinine 0.4 MG/DL (0.55-1.30) L Estimat Glomerular Filtration Rate > 60 mL/min (>60) Glucose Level 94 MG/DL (74-106) Calcium Level 8.7 MG/DL (8.5-10.1) Phosphorus Level 3.4 MG/DL (2.5-4.9) Magnesium Level 1.8 MG/DL (1.8-2.4) Jillian Ca MD Sep 06, 2018 18:37
--- NOTE | 2018-09-06 18:45 | Procedure Note ---
DATE OF PROCEDURE: 09/06/2018 SURGEON: Gurpreet Mims M.D. REFERRING PHYSICIAN: Brendan Gregory M.D. PROCEDURE: Upper endoscopy with biopsy. ANESTHESIA: Per Madisyn RIOS. INSTRUMENT: Olympus adult flexible upper endoscope. INDICATION: Nausea, vomiting, and abdominal pain. REASON FOR PROCEDURE: The procedure, risks, benefits, and possible consequences, including hemorrhage, aspiration, perforation and infection, and alternative treatments, were explained to the patient/legal guardian by Dr. Gurpreet Mims and the patient/legal guardian understood and accepted these risks. PROCEDURE IN DETAIL: After informed consent was obtained and the patient was adequately sedated, Olympus upper endoscope was advanced from mouth into the second portion of the duodenum and retroflexion was performed in the stomach. The patient had diffuse gastritis. Random biopsy from antrum was obtained to rule out H. pylori infection. Otherwise, the rest of the endoscopic examination grossly looked within normal limits. The patient tolerated the procedure very well without any complication. SUMMARY OF FINDINGS: Gastritis, otherwise normal endoscopic examination. RECOMMENDATIONS: Follow up biopsy results and treat accordingly. I want to thank, Dr. Brendan Gregory, for this kind referral. Gurpreet Mims M.D. DR: JAVIER JOB#: [id number] CC:
--- NOTE | 2018-09-06 19:30 | NUR ---
HAND-OFF: Report given to [Katie FLYNN.].
--- NOTE | 2018-09-06 19:31 | NUR ---
NURSE NOTES:Report received from GEE Fischer. Pt is in stable condition lying comfortably in bed. IV sites patent and intact. Bed is in the lowest position, bed brakes engaged, side rails up x 3 and call light within reach. Will continue to monitor.
[2018-09-06] MEDS: QUEtiapine 200mg tab ORAL SCH (21:02)
--- NOTE | 2018-09-06 21:17 | General Progress Note ---
Assessment/Plan Problem List: (1) Bipolar 1 disorder ICD Codes: F31.9 - Bipolar disorder, unspecified SNOMED: 172914094 (2) COPD exacerbation ICD Codes: J44.1 - Chronic obstructive pulmonary disease with (acute) exacerbation SNOMED: 691135027 (3) Iron deficiency anemia ICD Codes: D50.9 - Iron deficiency anemia, unspecified SNOMED: 74349353 (4) Dehydration ICD Codes: E86.0 - Dehydration SNOMED: 86935285 (5) Gastritis ICD Codes: K29.70 - Gastritis, unspecified, without bleeding SNOMED: 5272085 (6) Peptic ulcer disease ICD Codes: K27.9 - Peptic ulcer, site unspecified, unspecified as acute or chronic, without hemorrhage or perforation SNOMED: 49539225 (7) GERD (gastroesophageal reflux disease) ICD Codes: K21.9 - Gastro-esophageal reflux disease without esophagitis SNOMED: 214951654 (8) Sinus pause ICD Codes: I45.5 - Other specified heart block SNOMED: 93265268 Status: progressing Assessment/Plan check h/h no bleeding resp insuff dehydration improving gerd copd exac Subjective ROS Limited/Unobtainable: Yes Allergies: Coded Allergies: PEANUT (Verified Allergy, Intermediate, hives, 09/03/18) [place] (Verified Allergy, Intermediate, hives, 09/03/18) [place] (Verified Allergy, Unknown, hives, 09/03/18) SULFA (SULFONAMIDE ANTIBIOTICS) (Verified Allergy, Unknown, 09/03/18) Objective Last 24 Hour Vital Signs Date Time Temp Pulse Resp B/P (MAP) Pulse Ox O2 Delivery O2 Flow Rate FiO2 09/06/18 20:06 97 20 Room Air 21 09/06/18 20:00 97.5 97 20 113/69 (84) 96 97 09/06/18 16:00 98.6 103 20 102/67 (79) 98 103 09/06/18 15:34 96 09/06/18 12:27 100 09/06/18 12:25 98.2 99 22 103/66 (78) 99 99 09/06/18 11:50 109 22 127/82 99 Room Air 09/06/18 11:48 118 22 96 09/06/18 11:43 114 22 123/88 99 Room Air 09/06/18 11:38 117 22 128/62 99 Simple Mask 5 09/06/18 11:33 97.2 117 22 130/90 99 Simple Mask 5 09/06/18 09:00 Nasal Cannula 2.0 09/06/18 08:57 108 18 Room Air 21 09/06/18 08:00 99.7 104 22 146/98 (114) 94 09/06/18 07:39 112 09/06/18 04:00 2.0 09/06/18 04:00 97.5 117 18 118/68 (85) 98 09/06/18 04:00 113 09/06/18 00:00 120 09/06/18 00:00 2.0 09/06/18 00:00 97.7 123 16 110/61 (77) 96 09/05/18 23:00 2.0 Intake and Output 09/05/18 09/06/18 19:00 07:00 Intake Total 300 ml 55 ml Balance 300 ml 55 ml Intake Oral 300 ml IV Total 55 ml # Voids 2 4 # Bowel Movements 3 3 Laboratory Tests 09/06/18 04:20: White Blood Count 7.0, Red Blood Count 3.95L, Hemoglobin 10.9L, Hematocrit 35.3L , Mean Corpuscular Volume 89, Mean Corpuscular Hemoglobin 27.6, Mean Corpuscular Hemoglobin Concent 30.9L, Red Cell Distribution Width 16.0H, Platelet Count 275, Mean Platelet Volume 6.8, Neutrophils (%) (Auto) 74.5, Lymphocytes (%) (Auto) 14.1L, Monocytes (%) (Auto) 7.4, Eosinophils (%) (Auto) 2.8, Basophils (%) (Auto) 1.2, Prothrombin Time 10.6, Prothromb Time International Ratio 1.0, Activated Partial Thromboplast Time 30, Sodium Level 141, Potassium Level 3.6, Chloride Level 100, Carbon Dioxide Level 38H, Anion Gap 3L, Blood Urea Nitrogen 11, Creatinine 0.4L, Estimat Glomerular Filtration Rate > 60, Glucose Level 94, Calcium Level 8.7, Phosphorus Level 3.4, Magnesium Level 1.8 Height (Feet): 5 Height (Inches): 2.00 Weight (Pounds): 260 Cardiovascular: normal rate Respiratory/Chest: lungs clear Abdomen: soft Brendan Gregory MD Sep 06, 2018 21:17
[2018-09-06] MEDS: cefTRIAXone 1 GM in D5W 55 ML IVPB SCH (22:08)
[2018-09-07] VITALS: BP 109/61
--- NOTE | 2018-09-07 02:23 | NUR ---
HAND-OFF: Report given to GEE Sotelo. Plan of care endorsed.
--- NOTE | 2018-09-07 02:36 | NUR ---
NURSE NOTES: Received report from GEE Valentine. Patient is asleep lying supine; resting comfortably. Arousable to verbal and tactile stimuli. No signs of acute distress or pain noted at this time. 1:1 sitter at bedside. AOx4; able to make needs known. Checked IV site; patent and flushed. No erythema, bleeding, or infiltration noted. Bed at lowest position, brakes on, siderails up x2. Call light within reach. Will continue to monitor.
[2018-09-07 04:00] VITALS: BP 124/71
--- NOTE | 2018-09-07 04:46 | NUR ---
NURSE NOTES: Patient is asleep lying semi-geller's; resting comfortably. No signs of acute distress or pain noted at this time. 1:1 sitter at bedside.
[2018-09-07 06:32] LABS: BASOPHILS % (AUTO) 0.9 % (0.0-2.0); EOSINOPHILS % (AUTO) 2.9 % (0.0-3.0); HEMATOCRIT 35.9 % (37.0-47.0); HEMOGLOBIN 10.9 G/DL (12.0-16.0); LYMPHOCYTES % (AUTO) 11.6 % (20.0-45.0); MEAN CORPUSCULAR VOLUME 90 FL (80-99); MONOCYTES % (AUTO) 7.5 % (1.0-10.0); PLATELET COUNT 289 K/UL (150-450); RED BLOOD COUNT 3.99 M/UL (4.20-5.40); WHITE BLOOD COUNT 8.2 K/UL (4.8-10.8)
[2018-09-07 07:06] LABS: ANION GAP 1 mmol/L (5-15); BLOOD UREA NITROGEN 15 mg/dL (7-18); CALCIUM 9.2 MG/DL (8.5-10.1); CARBON DIOXIDE 39 MMOL/L (21-32); CHLORIDE 102 MMOL/L (98-107); CREATININE 0.5 MG/DL (0.55-1.30); POTASSIUM 4.1 MMOL/L (3.5-5.1); SODIUM 142 MMOL/L (136-145)
--- NOTE | 2018-09-07 07:48 | NUR ---
HAND-OFF: Report given to GEE Vaughn and Amado RN. Patient is asleep lying semi-geller's; resting comfortably. In stable condition.
[2018-09-07 08:00] VITALS: BP 103/57
--- NOTE | 2018-09-07 08:00 | NUR ---
NURSE NOTES: Received patient. Asleep in bed. Vitals stable. No s/s of respiratory distress. On room air. PIV on left AC, saline locked, dressing intact, no signs of infiltration or infection. Sitter at bedside. Bed alarm on, bed locked in low position, call light within reach.
[2018-09-07] MEDS: Docusate 100mg cap ORAL SCH ×4 (09:00→17:40)
--- NOTE | 2018-09-07 11:02 | General Progress Note ---
Assessment/Plan Problem List: (1) Obstructive sleep apnea ICD Codes: G47.33 - Obstructive sleep apnea (adult) (pediatric) SNOMED: 65958744 (2) GERD (gastroesophageal reflux disease) ICD Codes: K21.9 - Gastro-esophageal reflux disease without esophagitis SNOMED: 660680026 (3) Iron deficiency anemia ICD Codes: D50.9 - Iron deficiency anemia, unspecified SNOMED: 66098965 (4) Bipolar 1 disorder ICD Codes: F31.9 - Bipolar disorder, unspecified SNOMED: 034985637 Assessment/Plan s/p EGD ppi daily fu cbc fu stool ob colonoscopy if needed Subjective ROS Limited/Unobtainable: Yes Allergies: Coded Allergies: PEANUT (Verified Allergy, Intermediate, hives, 09/03/18) [place] (Verified Allergy, Intermediate, hives, 09/03/18) [place] (Verified Allergy, Unknown, hives, 09/03/18) SULFA (SULFONAMIDE ANTIBIOTICS) (Verified Allergy, Unknown, 09/03/18) Objective Last 24 Hour Vital Signs Date Time Temp Pulse Resp B/P (MAP) Pulse Ox O2 Delivery O2 Flow Rate FiO2 09/07/18 09:00 Room Air 2.0 09/07/18 08:00 99.9 122 22 103/57 (72) 95 09/07/18 07:28 99 20 Room Air 21 09/07/18 04:00 115 09/07/18 04:00 98.9 101 20 124/71 (88) 95 09/07/18 00:00 105 09/07/18 00:00 97.7 100 18 109/61 (77) 94 09/06/18 21:00 Nasal Cannula 2.0 09/06/18 20:06 97 20 Room Air 21 09/06/18 20:00 94 09/06/18 20:00 97.5 97 20 113/69 (84) 96 09/06/18 16:00 98.6 103 20 102/67 (79) 98 103 09/06/18 15:34 96 09/06/18 12:27 100 09/06/18 12:25 98.2 99 22 103/66 (78) 99 99 09/06/18 11:50 109 22 127/82 99 Room Air 09/06/18 11:48 118 22 96 09/06/18 11:43 114 22 123/88 99 Room Air 09/06/18 11:38 117 22 128/62 99 Simple Mask 5 09/06/18 11:33 97.2 117 22 130/90 99 Simple Mask 5 Intake and Output 09/06/18 09/07/18 18:59 06:59 Intake Total 1210 ml 720 ml Balance 1210 ml 720 ml Intake Oral 960 ml 720 ml IV Total 250 ml # Voids 2 4 Laboratory Tests 09/07/18 05:25: White Blood Count 8.2, Red Blood Count 3.99L, Hemoglobin 10.9L, Hematocrit 35.9L , Mean Corpuscular Volume 90, Mean Corpuscular Hemoglobin 27.3, Mean Corpuscular Hemoglobin Concent 30.3L, Red Cell Distribution Width 16.0H, Platelet Count 289, Mean Platelet Volume 6.6, Neutrophils (%) (Auto) 77.0H, Lymphocytes (%) (Auto) 11.6L, Monocytes (%) (Auto) 7.5, Eosinophils (%) (Auto) 2.9, Basophils (%) (Auto) 0.9, Sodium Level 142, Potassium Level 4.1, Chloride Level 102, Carbon Dioxide Level 39H, Anion Gap 1L, Blood Urea Nitrogen 15, Creatinine 0.5L, Estimat Glomerular Filtration Rate > 60, Glucose Level 107H, Calcium Level 9.2 Height (Feet): 5 Height (Inches): 2.00 Weight (Pounds): 260 General Appearance: alert EENT: normal ENT inspection Neck: supple Cardiovascular: normal rate Respiratory/Chest: decreased breath sounds Abdomen: normal bowel sounds, non tender, soft Extremities: non-tender Gurpreet Mims MD Sep 07, 2018 11:02
[2018-09-07 12:00] VITALS: BP 114/64
--- NOTE | 2018-09-07 15:41 | NUR ---
CASE MANAGEMENT: REVIEW SI: ABDOMINAL PAIN . COPD EGD 09/06 T 99.9 HR 122 RR 22 BP 103/57 SAT 95% ROOM AIR H/H 10.9/35.9 IS: PROTONIX PO Q12HR CEFTRIAXONE IV Q24HR TELEMETRY UNIT STATUS DCP: PATIENT IS FROM HOME
[2018-09-07 16:00] VITALS: BP 119/75
--- NOTE | 2018-09-07 16:10 | Nephrology Progress Note ---
Assessment/Plan Problem List: (1) Iron deficiency anemia (2) Hypoalbuminemia (3) COPD exacerbation Assessment Anemia HypoAlbuminemia UTI COPD exacerbation ? CHF Psych Ds Plan Anemia quiroz- low Iron BP in check per Psych antibiotics pulm toilet hold off beta blockers due to COPD per orders Subjective ROS Limited/Unobtainable: No Constitutional: Reports: malaise Objective Objective Last 24 Hour Vital Signs Date Time Temp Pulse Resp B/P (MAP) Pulse Ox O2 Delivery O2 Flow Rate FiO2 09/07/18 12:00 97.7 114 20 114/64 (81) 92 09/07/18 11:48 116 09/07/18 09:00 Room Air 2.0 09/07/18 08:00 99.9 122 22 103/57 (72) 95 09/07/18 07:58 117 09/07/18 07:28 99 20 Room Air 21 09/07/18 04:00 115 09/07/18 04:00 98.9 101 20 124/71 (88) 95 09/07/18 00:00 105 09/07/18 00:00 97.7 100 18 109/61 (77) 94 09/06/18 21:00 Nasal Cannula 2.0 09/06/18 20:06 97 20 Room Air 21 09/06/18 20:00 94 09/06/18 20:00 97.5 97 20 113/69 (84) 96 Intake and Output 09/06/18 09/07/18 19:00 07:00 Intake Total 1210 ml 720 ml Balance 1210 ml 720 ml Intake Oral 960 ml 720 ml IV Total 250 ml # Voids 2 4 Laboratory Tests 09/07/18 05:25: White Blood Count 8.2, Red Blood Count 3.99L, Hemoglobin 10.9L, Hematocrit 35.9L , Mean Corpuscular Volume 90, Mean Corpuscular Hemoglobin 27.3, Mean Corpuscular Hemoglobin Concent 30.3L, Red Cell Distribution Width 16.0H, Platelet Count 289, Mean Platelet Volume 6.6, Neutrophils (%) (Auto) 77.0H, Lymphocytes (%) (Auto) 11.6L, Monocytes (%) (Auto) 7.5, Eosinophils (%) (Auto) 2.9, Basophils (%) (Auto) 0.9, Sodium Level 142, Potassium Level 4.1, Chloride Level 102, Carbon Dioxide Level 39H, Anion Gap 1L, Blood Urea Nitrogen 15, Creatinine 0.5L, Estimat Glomerular Filtration Rate > 60, Glucose Level 107H, Calcium Level 9.2 Height (Feet): 5 Height (Inches): 2.00 Weight (Pounds): 260 General Appearance: no apparent distress Objective no change Dante Patel MD Sep 07, 2018 16:10
--- NOTE | 2018-09-07 18:26 | Cardiology Progress Note ---
Assessment/Plan Assessment/Plan The patient is stable in sinus rhythm Subjective Subjective the patient is sleeping in bed, she is arousable, and reports feeling good no dizziness, no dyspnea Objective Last 24 Hour Vital Signs Date Time Temp Pulse Resp B/P (MAP) Pulse Ox O2 Delivery O2 Flow Rate FiO2 09/07/18 16:00 99.4 115 20 119/75 (90) 95 09/07/18 15:19 118 09/07/18 12:00 97.7 114 20 114/64 (81) 92 09/07/18 11:48 116 09/07/18 09:00 Room Air 2.0 09/07/18 08:00 99.9 122 22 103/57 (72) 95 09/07/18 07:58 117 09/07/18 07:28 99 20 Room Air 21 09/07/18 04:00 115 09/07/18 04:00 98.9 101 20 124/71 (88) 95 09/07/18 00:00 105 09/07/18 00:00 97.7 100 18 109/61 (77) 94 09/06/18 21:00 Nasal Cannula 2.0 09/06/18 20:06 97 20 Room Air 21 09/06/18 20:00 94 09/06/18 20:00 97.5 97 20 113/69 (84) 96 General Appearance: lethargic, obese EENT: PERRL/EOMI Neck: JVD Rhythm: NSR Cardiovascular: normal rate Respiratory/Chest: rhonchi - bilaterally Abdomen: distended Extremities: trace edema Intake and Output 09/06/18 09/07/18 19:00 07:00 Intake Total 1210 ml 720 ml Balance 1210 ml 720 ml Intake Oral 960 ml 720 ml IV Total 250 ml # Voids 2 4 Laboratory Tests Test 09/07/18 05:25 White Blood Count 8.2 K/UL (4.8-10.8) Red Blood Count 3.99 M/UL (4.20-5.40) L Hemoglobin 10.9 G/DL (12.0-16.0) L Hematocrit 35.9 % (37.0-47.0) L Mean Corpuscular Volume 90 FL (80-99) Mean Corpuscular Hemoglobin 27.3 PG (27.0-31.0) Mean Corpuscular Hemoglobin Concent 30.3 G/DL (32.0-36.0) L Red Cell Distribution Width 16.0 % (11.6-14.8) H Platelet Count 289 K/UL (150-450) Mean Platelet Volume 6.6 FL (6.5-10.1) Neutrophils (%) (Auto) 77.0 % (45.0-75.0) H Lymphocytes (%) (Auto) 11.6 % (20.0-45.0) L Monocytes (%) (Auto) 7.5 % (1.0-10.0) Eosinophils (%) (Auto) 2.9 % (0.0-3.0) Basophils (%) (Auto) 0.9 % (0.0-2.0) Sodium Level 142 MMOL/L (136-145) Potassium Level 4.1 MMOL/L (3.5-5.1) Chloride Level 102 MMOL/L (98-107) Carbon Dioxide Level 39 MMOL/L (21-32) H Anion Gap 1 mmol/L (5-15) L Blood Urea Nitrogen 15 mg/dL (7-18) Creatinine 0.5 MG/DL (0.55-1.30) L Estimat Glomerular Filtration Rate > 60 mL/min (>60) Glucose Level 107 MG/DL (74-106) H Calcium Level 9.2 MG/DL (8.5-10.1) Brandy Camilo MD Sep 07, 2018 18:26
--- NOTE | 2018-09-07 19:20 | NUR ---
NURSE NOTES: Received report from GEE Fischer. Patient in bed awake showing no signs of acute distress. Respiration even and non labored on room air. NO SOB noted. Vitals stable. IV line patent and intact. All needs attended and met. Bed in lowest position. Alarm on. Sitter on bedside. Call light within reach. Will continue plan of care.
--- NOTE | 2018-09-07 19:22 | NUR ---
HAND-OFF: Report given to Azar FLYNN.
[2018-09-07 20:00] VITALS: BP 133/75
[2018-09-07] MEDS: QUEtiapine 200mg tab ORAL SCH (20:34)
--- NOTE | 2018-09-07 21:17 | General Progress Note ---
Assessment/Plan Problem List: (1) Bipolar 1 disorder ICD Codes: F31.9 - Bipolar disorder, unspecified SNOMED: 527348373 (2) COPD exacerbation ICD Codes: J44.1 - Chronic obstructive pulmonary disease with (acute) exacerbation SNOMED: 147884616 (3) Iron deficiency anemia ICD Codes: D50.9 - Iron deficiency anemia, unspecified SNOMED: 48223561 (4) Dehydration ICD Codes: E86.0 - Dehydration SNOMED: 09942160 (5) Gastritis ICD Codes: K29.70 - Gastritis, unspecified, without bleeding SNOMED: 9620671 (6) Peptic ulcer disease ICD Codes: K27.9 - Peptic ulcer, site unspecified, unspecified as acute or chronic, without hemorrhage or perforation SNOMED: 85444020 (7) GERD (gastroesophageal reflux disease) ICD Codes: K21.9 - Gastro-esophageal reflux disease without esophagitis SNOMED: 370605922 (8) Sinus pause ICD Codes: I45.5 - Other specified heart block SNOMED: 94395667 Status: progressing Assessment/Plan copd exacerbation improving moniter for gi bleed afebrile vitals stable psych pt Subjective ROS Limited/Unobtainable: Yes Allergies: Coded Allergies: PEANUT (Verified Allergy, Intermediate, hives, 09/03/18) TOMATO (Verified Allergy, Intermediate, hives, 09/03/18) [place] (Verified Allergy, Unknown, hives, 09/03/18) SULFA (SULFONAMIDE ANTIBIOTICS) (Verified Allergy, Unknown, 09/03/18) Objective Last 24 Hour Vital Signs Date Time Temp Pulse Resp B/P (MAP) Pulse Ox O2 Delivery O2 Flow Rate FiO2 09/07/18 19:51 111 20 Room Air 21 09/07/18 16:00 99.4 115 20 119/75 (90) 95 09/07/18 15:19 118 09/07/18 12:00 97.7 114 20 114/64 (81) 92 09/07/18 11:48 116 09/07/18 09:00 Room Air 2.0 09/07/18 08:00 99.9 122 22 103/57 (72) 95 09/07/18 07:58 117 09/07/18 07:28 99 20 Room Air 21 09/07/18 04:00 115 09/07/18 04:00 98.9 101 20 124/71 (88) 95 09/07/18 00:00 105 09/07/18 00:00 97.7 100 18 109/61 (77) 94 Intake and Output 09/06/18 09/07/18 19:00 07:00 Intake Total 1210 ml 720 ml Balance 1210 ml 720 ml Intake Oral 960 ml 720 ml IV Total 250 ml # Voids 2 4 Laboratory Tests 09/07/18 05:25: White Blood Count 8.2, Red Blood Count 3.99L, Hemoglobin 10.9L, Hematocrit 35.9L , Mean Corpuscular Volume 90, Mean Corpuscular Hemoglobin 27.3, Mean Corpuscular Hemoglobin Concent 30.3L, Red Cell Distribution Width 16.0H, Platelet Count 289, Mean Platelet Volume 6.6, Neutrophils (%) (Auto) 77.0H, Lymphocytes (%) (Auto) 11.6L, Monocytes (%) (Auto) 7.5, Eosinophils (%) (Auto) 2.9, Basophils (%) (Auto) 0.9, Sodium Level 142, Potassium Level 4.1, Chloride Level 102, Carbon Dioxide Level 39H, Anion Gap 1L, Blood Urea Nitrogen 15, Creatinine 0.5L, Estimat Glomerular Filtration Rate > 60, Glucose Level 107H, Calcium Level 9.2 Height (Feet): 5 Height (Inches): 2.00 Weight (Pounds): 260 Cardiovascular: normal peripheral pulses Respiratory/Chest: lungs clear Brendan Gregory MD Sep 07, 2018 21:17
[2018-09-07] MEDS: cefTRIAXone 1 GM in D5W 55 ML IVPB SCH (22:51)
[2018-09-08] VITALS: BP 118/64
[2018-09-08 04:00] VITALS: BP 102/69
[2018-09-08 06:54] LABS: BASOPHILS % (AUTO) 1.3 % (0.0-2.0); EOSINOPHILS % (AUTO) 2.7 % (0.0-3.0); HEMATOCRIT 34.9 % (37.0-47.0); HEMOGLOBIN 10.7 G/DL (12.0-16.0); LYMPHOCYTES % (AUTO) 18.5 % (20.0-45.0); MEAN CORPUSCULAR VOLUME 90 FL (80-99); MONOCYTES % (AUTO) 7.7 % (1.0-10.0); NEUTROPHILS % (AUTO) 69.7 % (45.0-75.0); PLATELET COUNT 316 K/UL (150-450); RED BLOOD COUNT 3.88 M/UL (4.20-5.40); RED CELL DISTRIBUTION WIDTH 16.3 % (11.6-14.8); WHITE BLOOD COUNT 8.2 K/UL (4.8-10.8)
--- NOTE | 2018-09-08 07:15 | NUR ---
HAND-OFF: Report given to GEE [place].
[2018-09-08 08:00] VITALS: BP 115/81
--- NOTE | 2018-09-08 08:25 | NUR ---
NURSE NOTES: Received report from Azar FLYNN. Pt sleeping calmly in bed. Pt on monitor and storage bin tender, no signs of distress at present time. Call light with in reach. Bed locked and in lowest position. Will continue plan of care.
[2018-09-08] MEDS: Docusate 100mg cap ORAL SCH ×3 (08:56→17:39)
--- NOTE | 2018-09-08 10:19 | NUR ---
NURSE NOTES: patient insisting of going down to get some air, sitter at bedside, SR-ST in the monitor, notified dr barahona.
--- NOTE | 2018-09-08 11:04 | General Progress Note ---
Assessment/Plan Problem List: (1) Obstructive sleep apnea ICD Codes: G47.33 - Obstructive sleep apnea (adult) (pediatric) SNOMED: 22020186 (2) GERD (gastroesophageal reflux disease) ICD Codes: K21.9 - Gastro-esophageal reflux disease without esophagitis SNOMED: 639045400 (3) Iron deficiency anemia ICD Codes: D50.9 - Iron deficiency anemia, unspecified SNOMED: 24183644 (4) Bipolar 1 disorder ICD Codes: F31.9 - Bipolar disorder, unspecified SNOMED: 830427675 Assessment/Plan s/p EGD ppi daily fu cbc fu stool ob colonoscopy if needed Subjective ROS Limited/Unobtainable: Yes Allergies: Coded Allergies: PEANUT (Verified Allergy, Intermediate, hives, 09/03/18) TOMATO (Verified Allergy, Intermediate, hives, 09/03/18) [place] (Verified Allergy, Unknown, hives, 09/03/18) SULFA (SULFONAMIDE ANTIBIOTICS) (Verified Allergy, Unknown, 09/03/18) Objective Last 24 Hour Vital Signs Date Time Temp Pulse Resp B/P (MAP) Pulse Ox O2 Delivery O2 Flow Rate FiO2 09/08/18 08:00 98.2 107 18 115/81 (92) 92 09/08/18 08:00 113 09/08/18 04:00 121 09/08/18 04:00 97.0 117 20 102/69 (80) 91 09/08/18 00:00 113 09/08/18 00:00 98.0 116 22 118/64 (82) 98 09/07/18 21:00 Room Air 2.0 09/07/18 20:00 98.0 115 18 133/75 (94) 98 09/07/18 20:00 108 09/07/18 19:51 111 20 Room Air 21 09/07/18 16:00 99.4 115 20 119/75 (90) 95 09/07/18 15:19 118 09/07/18 12:00 97.7 114 20 114/64 (81) 92 09/07/18 11:48 116 Intake and Output 09/07/18 09/08/18 18:59 06:59 Intake Total 850 ml Balance 850 ml Intake Oral 850 ml # Voids 3 5 # Bowel Movements 1 Laboratory Tests 09/07/18 20:00: Stool Occult Blood [Pending] 09/08/18 05:15: White Blood Count 8.2, Red Blood Count 3.88L, Hemoglobin 10.7L, Hematocrit 34.9L , Mean Corpuscular Volume 90, Mean Corpuscular Hemoglobin 27.4, Mean Corpuscular Hemoglobin Concent 30.5L, Red Cell Distribution Width 16.3H, Platelet Count 316, Mean Platelet Volume 6.9, Neutrophils (%) (Auto) 69.7, Lymphocytes (%) (Auto) 18.5L, Monocytes (%) (Auto) 7.7, Eosinophils (%) (Auto) 2.7, Basophils (%) (Auto) 1.3 Height (Feet): 5 Height (Inches): 2.00 Weight (Pounds): 260 General Appearance: alert EENT: normal ENT inspection Neck: supple Cardiovascular: normal rate Respiratory/Chest: decreased breath sounds Abdomen: normal bowel sounds, non tender, soft Extremities: non-tender Gurpreet Mims MD Sep 08, 2018 11:04
--- NOTE | 2018-09-08 11:06 | Nephrology Progress Note ---
Assessment/Plan Problem List: (1) Iron deficiency anemia (2) Hypoalbuminemia (3) COPD exacerbation Assessment Anemia HypoAlbuminemia UTI COPD exacerbation ? CHF Psych Ds Plan Anemia quiroz- low Iron BP in check per Psych antibiotics pulm toilet hold off beta blockers due to COPD per orders Subjective ROS Limited/Unobtainable: No Objective Objective Last 24 Hour Vital Signs Date Time Temp Pulse Resp B/P (MAP) Pulse Ox O2 Delivery O2 Flow Rate FiO2 09/08/18 08:00 98.2 107 18 115/81 (92) 92 09/08/18 08:00 113 09/08/18 04:00 121 09/08/18 04:00 97.0 117 20 102/69 (80) 91 09/08/18 00:00 113 09/08/18 00:00 98.0 116 22 118/64 (82) 98 09/07/18 21:00 Room Air 2.0 09/07/18 20:00 98.0 115 18 133/75 (94) 98 09/07/18 20:00 108 09/07/18 19:51 111 20 Room Air 21 09/07/18 16:00 99.4 115 20 119/75 (90) 95 09/07/18 15:19 118 09/07/18 12:00 97.7 114 20 114/64 (81) 92 09/07/18 11:48 116 Intake and Output 09/07/18 09/08/18 18:59 06:59 Intake Total 850 ml Balance 850 ml Intake Oral 850 ml # Voids 3 5 # Bowel Movements 1 Laboratory Tests 09/07/18 20:00: Stool Occult Blood [Pending] 09/08/18 05:15: White Blood Count 8.2, Red Blood Count 3.88L, Hemoglobin 10.7L, Hematocrit 34.9L , Mean Corpuscular Volume 90, Mean Corpuscular Hemoglobin 27.4, Mean Corpuscular Hemoglobin Concent 30.5L, Red Cell Distribution Width 16.3H, Platelet Count 316, Mean Platelet Volume 6.9, Neutrophils (%) (Auto) 69.7, Lymphocytes (%) (Auto) 18.5L, Monocytes (%) (Auto) 7.7, Eosinophils (%) (Auto) 2.7, Basophils (%) (Auto) 1.3 Height (Feet): 5 Height (Inches): 2.00 Weight (Pounds): 260 General Appearance: no apparent distress Objective no change Dante Patel MD Sep 08, 2018 11:06
[2018-09-08 12:00] VITALS: BP 126/65
--- NOTE | 2018-09-08 12:09 | Infectious Diseases Prog Note ---
Assessment/Plan Assessment/Plan A; 1. Sepsis with leukocytosis and tachycardia.resolved 2. COPD exacerbation. 3. Morbid obesity. treated 4. Bipolar disorder. 5. Anemia.Iron deficiency 6. diarrhea resolved RECOMMENDATION: 1. discontinue with ceftriaxone. , 2. Observe off antibiotic Subjective ROS Limited/Unobtainable: No Constitutional: Reports: no symptoms Respiratory: Reports: shortness of breath Cardiovascular: Reports: no symptoms Gastrointestinal/Abdominal: Reports: no symptoms Genitourinary: Reports: no symptoms Allergies: Coded Allergies: PEANUT (Verified Allergy, Intermediate, hives, 09/03/18) [place] (Verified Allergy, Intermediate, hives, 09/03/18) [place] (Verified Allergy, Unknown, hives, 09/03/18) SULFA (SULFONAMIDE ANTIBIOTICS) (Verified Allergy, Unknown, 09/03/18) Objective Vital Signs Last 24 Hour Vital Signs Date Time Temp Pulse Resp B/P (MAP) Pulse Ox O2 Delivery O2 Flow Rate FiO2 09/08/18 09:00 Room Air 09/08/18 08:00 98.2 107 18 115/81 (92) 92 09/08/18 08:00 113 09/08/18 04:00 121 09/08/18 04:00 97.0 117 20 102/69 (80) 91 09/08/18 00:00 113 09/08/18 00:00 98.0 116 22 118/64 (82) 98 09/07/18 21:00 Room Air 2.0 09/07/18 20:00 98.0 115 18 133/75 (94) 98 09/07/18 20:00 108 09/07/18 19:51 111 20 Room Air 21 09/07/18 16:00 99.4 115 20 119/75 (90) 95 09/07/18 15:19 118 Height (Feet): 5 Height (Inches): 2.00 Weight (Pounds): 260 General Appearance: no acute distress HEENT: mucous membranes moist Respiratory/Chest: lungs clear Cardiovascular: normal rate Abdomen: soft, non tender Extremities: no edema Neurologic/Psychiatric: alert, oriented x 3, responsive Laboratory Tests Test 09/07/18 20:00 09/08/18 05:15 Stool Occult Blood Pending White Blood Count 8.2 K/UL (4.8-10.8) Red Blood Count 3.88 M/UL (4.20-5.40) L Hemoglobin 10.7 G/DL (12.0-16.0) L Hematocrit 34.9 % (37.0-47.0) L Mean Corpuscular Volume 90 FL (80-99) Mean Corpuscular Hemoglobin 27.4 PG (27.0-31.0) Mean Corpuscular Hemoglobin Concent 30.5 G/DL (32.0-36.0) L Red Cell Distribution Width 16.3 % (11.6-14.8) H Platelet Count 316 K/UL (150-450) Mean Platelet Volume 6.9 FL (6.5-10.1) Neutrophils (%) (Auto) 69.7 % (45.0-75.0) Lymphocytes (%) (Auto) 18.5 % (20.0-45.0) L Monocytes (%) (Auto) 7.7 % (1.0-10.0) Eosinophils (%) (Auto) 2.7 % (0.0-3.0) Basophils (%) (Auto) 1.3 % (0.0-2.0) Current Medications Medications (Trade) Dose Ordered Sig/Jason Route PRN Reason Start Time Stop Time Status Last Admin Dose Admin Al Hydroxide/Mg Hydroxide (Mylanta) 30 ml QIDPRN PRN ORAL Gastric Discomfort 09/05/18 10:30 10/05/18 10:29 09/05/18 10:40 Albuterol/ Ipratropium (Albuterol/ Ipratropium) 3 ml Q4HRT PRN HHN Shortness of Breath 09/03/18 16:30 09/08/18 16:29 Ceftriaxone Sodium 1 gm/ Dextrose 55 ml @ 110 mls/hr Q24H IVPB 09/03/18 23:00 09/10/18 22:59 09/07/18 22:51 Docusate Sodium (Colace) 100 mg THREE TIMES A DAY ORAL 09/04/18 13:00 10/04/18 12:59 09/07/18 17:40 Ferrous Sulfate (Feosol) 325 mg THREE TIMES A DAY ORAL 09/04/18 18:00 10/04/18 17:59 09/08/18 08:55 Metoclopramide HCl (Reglan) 10 mg Q6H PRN IVP Nausea & Vomiting 09/05/18 16:00 10/05/18 15:59 Pantoprazole (Protonix) 40 mg EVERY 12 HOURS ORAL 09/04/18 21:00 10/04/18 20:59 09/08/18 08:55 Quetiapine Fumarate (SEROquel) 200 mg BEDTIME ORAL 09/03/18 21:00 10/03/18 20:59 09/07/18 20:34 Howie Sams MD Sep 08, 2018 12:09
--- NOTE | 2018-09-08 13:30 | NUR ---
NURSE NOTES: called and spoke with Tawnya in [facility], she is not sure if they have a room for Mrs. Sage's yet, she will call me back.
--- NOTE | 2018-09-08 14:15 | NUR ---
NURSE NOTES: REC'D A 48 YR OLD FEMALE WITH DX OF COPD. AWAKE /ALERT.X4. NO SOB/NO C/O PAIN. IN NO DISTRESS.
--- NOTE | 2018-09-08 14:16 | Cardiology Progress Note ---
Assessment/Plan Assessment/Plan No evidence of pauses, most of the time she is in sinus tachycardia Subjective Subjective the patient is sleeping in bed, she reports feeling the same,m no dizzness or syncope Objective Last 24 Hour Vital Signs Date Time Temp Pulse Resp B/P (MAP) Pulse Ox O2 Delivery O2 Flow Rate FiO2 09/08/18 09:00 Room Air 09/08/18 08:00 98.2 107 18 115/81 (92) 92 09/08/18 08:00 113 09/08/18 04:00 121 09/08/18 04:00 97.0 117 20 102/69 (80) 91 09/08/18 00:00 113 09/08/18 00:00 98.0 116 22 118/64 (82) 98 09/07/18 21:00 Room Air 2.0 09/07/18 20:00 98.0 115 18 133/75 (94) 98 09/07/18 20:00 108 09/07/18 19:51 111 20 Room Air 21 09/07/18 16:00 99.4 115 20 119/75 (90) 95 09/07/18 15:19 118 General Appearance: alert EENT: PERRL/EOMI Neck: normal alignment Rhythm: ST Cardiovascular: tachycardia Respiratory/Chest: rhonchi - bilaterally Abdomen: distended Extremities: normal capillary refill Intake and Output 09/07/18 09/08/18 18:59 06:59 Intake Total 850 ml Balance 850 ml Intake Oral 850 ml # Voids 3 5 # Bowel Movements 1 Laboratory Tests Test 09/07/18 20:00 09/08/18 05:15 Stool Occult Blood Pending White Blood Count 8.2 K/UL (4.8-10.8) Red Blood Count 3.88 M/UL (4.20-5.40) L Hemoglobin 10.7 G/DL (12.0-16.0) L Hematocrit 34.9 % (37.0-47.0) L Mean Corpuscular Volume 90 FL (80-99) Mean Corpuscular Hemoglobin 27.4 PG (27.0-31.0) Mean Corpuscular Hemoglobin Concent 30.5 G/DL (32.0-36.0) L Red Cell Distribution Width 16.3 % (11.6-14.8) H Platelet Count 316 K/UL (150-450) Mean Platelet Volume 6.9 FL (6.5-10.1) Neutrophils (%) (Auto) 69.7 % (45.0-75.0) Lymphocytes (%) (Auto) 18.5 % (20.0-45.0) L Monocytes (%) (Auto) 7.7 % (1.0-10.0) Eosinophils (%) (Auto) 2.7 % (0.0-3.0) Basophils (%) (Auto) 1.3 % (0.0-2.0) Brandy Camilo MD Sep 08, 2018 14:16
[2018-09-08] MEDS ORDERED: GI Cocktail 50ml ORAL PRN (15:00)
[2018-09-08] MEDS ORDERED: Albuterol/Ipratropium 3ml neb HHN PRN (15:00)
[2018-09-08 16:00] VITALS: BP 111/76
[2018-09-08] MEDS ORDERED: Metoclopramide 10mg/2ml Inj IVP PRN (16:00)
--- NOTE | 2018-09-08 16:22 | General Progress Note ---
Assessment/Plan Assessment/Plan Assessment and Recs: # Anemia of iron deficiency, ferritin at this time is decreased, is <100, has been started on iron, is 59 --> Anemia workup has been reviewed --> No evidence of hemolysis is noted, peripheral smear has been reviewed. --> Hgb goal >7. Transfuse prn. --> Po ferrous sulfate has been started --> Medications have been reviewed --> evaluate with Gi team prn, endoscopy 09/06, does show e/o gastritis --> transfuse if hgb is < 7 (will trend CBC daily) # Leukocytois is likely related to stress reaction/infection --> trend wbc, 12k # COPD exacerbation --> on, abx, breathing treatments on prn basis # Electrolyte disorder --> as per renal # Psych disorder --> as per psych # Trachycardia is likely related to hemodilution --> appears improved The timing of this note does not necessarily reflect the time of the patient was seen. Greatly appreciate consultation! Subjective Constitutional: Denies: no symptoms, chills, diaphoresis, fever, malaise, weakness, other HEENT: Denies: no symptoms, eye pain, blurred vision, tearing, double vision, ear pain, ear discharge, nose pain, nose congestion, throat pain, throat swelling, mouth pain, mouth swelling, other Cardiovascular: Denies: no symptoms, chest pain, edema, irregular heart rate, lightheadedness, palpitations, syncope, other Respiratory: Denies: no symptoms, cough, orthopnea, shortness of breath, SOB with excertion, SOB at rest, sputum, stridor, wheezing, other Gastrointestinal/Abdominal: Denies: no symptoms, abdomen distended, abdominal pain, black stools, tarry stools, blood in stool, constipated, diarrhea, difficulty swallowing, nausea, poor appetite, poor fluid intake, rectal bleeding , vomiting, other Genitourinary: Denies: no symptoms, burning, discharge, frequency, flank pain, hematuria, incontinence, pain, urgency, other Neurologic/Psychiatric: Denies: no symptoms, anxiety, depressed, emotional problems, headache, numbness, paresthesia, pre-existing deficit, seizure, tingling, tremors, weakness, other Endocrine: Denies: no symptoms, excessive sweating, flushing, intolerance to cold, intolerance to heat, increased hunger, increased thirst, increased urine, unexplained weight gain, unexplained weight loss, other Allergies: Coded Allergies: PEANUT (Verified Allergy, Intermediate, hives, 09/03/18) TOMATO (Verified Allergy, Intermediate, hives, 09/03/18) [place] (Verified Allergy, Unknown, hives, 09/03/18) SULFA (SULFONAMIDE ANTIBIOTICS) (Verified Allergy, Unknown, 09/03/18) Subjective 09/05: no events tomorrow is endoscopy, no bleeding, hgb 10 09/06: no events, no fevers of chills, is on ferrous sulfate, egd has been completed 09/08: off antibiotics at this time, seen by id, observe off abx Objective Last 24 Hour Vital Signs Date Time Temp Pulse Resp B/P (MAP) Pulse Ox O2 Delivery O2 Flow Rate FiO2 09/08/18 16:00 98.7 104 20 111/76 (88) 94 09/08/18 12:00 99.0 112 18 126/65 (85) 91 09/08/18 09:00 Room Air 09/08/18 08:00 98.2 107 18 115/81 (92) 92 09/08/18 08:00 113 09/08/18 04:00 121 09/08/18 04:00 97.0 117 20 102/69 (80) 91 09/08/18 00:00 113 09/08/18 00:00 98.0 116 22 118/64 (82) 98 09/07/18 21:00 Room Air 2.0 09/07/18 20:00 98.0 115 18 133/75 (94) 98 09/07/18 20:00 108 09/07/18 19:51 111 20 Room Air 21 Intake and Output 09/07/18 09/08/18 19:00 07:00 Intake Total 850 ml Balance 850 ml Intake Oral 850 ml # Voids 3 5 # Bowel Movements 1 Laboratory Tests 09/07/18 20:00: Stool Occult Blood [Pending] 09/08/18 05:15: White Blood Count 8.2, Red Blood Count 3.88L, Hemoglobin 10.7L, Hematocrit 34.9L , Mean Corpuscular Volume 90, Mean Corpuscular Hemoglobin 27.4, Mean Corpuscular Hemoglobin Concent 30.5L, Red Cell Distribution Width 16.3H, Platelet Count 316, Mean Platelet Volume 6.9, Neutrophils (%) (Auto) 69.7, Lymphocytes (%) (Auto) 18.5L, Monocytes (%) (Auto) 7.7, Eosinophils (%) (Auto) 2.7, Basophils (%) (Auto) 1.3 Height (Feet): 5 Height (Inches): 2.00 Weight (Pounds): 260 Objective Physical Exam: Vitals: reviewed General Appearance: NAD HEENT: normocephalic, atraumatic Neck: non-tender, normal alignment Respiratory/Chest: ++ sob noted Cardiovascular/Chest: normal peripheral pulses, normal rate Abdomen: normal bowel sounds, soft, nontender Extremities: normal range of motion Jackson Goff MD Sep 08, 2018 16:22
--- NOTE | 2018-09-08 19:23 | NUR ---
pt stable and off tele unit. Transported to [facility]. Sitter on site. Belonging checked by Kimberley Craig. All money was counted and reflects belonging sheet.
--- NOTE | 2018-09-08 19:34 | NUR ---
HAND-OFF: Report given to ARIANA FLYNN.
[2018-09-08 20:00] VITALS: BP 123/85
--- NOTE | 2018-09-08 20:00 | NUR ---
NURSE NOTES: PT IN BED IN. ON RA, NO SOB, NO ACUTE DISTRESS. IN PLEASANT MOOD, SITTER BY BED SIDE. LAC HEPLOCK INTACT. BED IN LOWEST POSITION, LOCKED, ALARMS ON. CALL LIGHT IN REACH.
[2018-09-08] MEDS ORDERED: QUEtiapine 200mg tab ORAL SCH (21:00)
--- NOTE | 2018-09-08 21:41 | General Progress Note ---
Assessment/Plan Problem List: (1) Bipolar 1 disorder ICD Codes: F31.9 - Bipolar disorder, unspecified SNOMED: 271535168 (2) COPD exacerbation ICD Codes: J44.1 - Chronic obstructive pulmonary disease with (acute) exacerbation SNOMED: 142525298 (3) Iron deficiency anemia ICD Codes: D50.9 - Iron deficiency anemia, unspecified SNOMED: 19375256 (4) Dehydration ICD Codes: E86.0 - Dehydration SNOMED: 34336396 (5) Gastritis ICD Codes: K29.70 - Gastritis, unspecified, without bleeding SNOMED: 5707937 (6) Peptic ulcer disease ICD Codes: K27.9 - Peptic ulcer, site unspecified, unspecified as acute or chronic, without hemorrhage or perforation SNOMED: 21334901 (7) GERD (gastroesophageal reflux disease) ICD Codes: K21.9 - Gastro-esophageal reflux disease without esophagitis SNOMED: 987897701 (8) Sinus pause ICD Codes: I45.5 - Other specified heart block SNOMED: 19392883 Status: progressing Assessment/Plan dc planning afebrile copd exacerbation improving psych pt Subjective ROS Limited/Unobtainable: Yes Allergies: Coded Allergies: PEANUT (Verified Allergy, Intermediate, hives, 09/03/18) TOMATO (Verified Allergy, Intermediate, hives, 09/03/18) [place] (Verified Allergy, Unknown, hives, 09/03/18) SULFA (SULFONAMIDE ANTIBIOTICS) (Verified Allergy, Unknown, 09/03/18) Objective Last 24 Hour Vital Signs Date Time Temp Pulse Resp B/P (MAP) Pulse Ox O2 Delivery O2 Flow Rate FiO2 09/08/18 19:24 104 18 95 Room Air 21 09/08/18 19:22 104 18 95 Room Air 21 09/08/18 19:21 104 18 Room Air 21 09/08/18 16:00 98.7 104 20 111/76 (88) 94 09/08/18 12:00 99.0 112 18 126/65 (85) 91 09/08/18 09:00 Room Air 09/08/18 08:00 98.2 107 18 115/81 (92) 92 09/08/18 08:00 113 09/08/18 04:00 121 09/08/18 04:00 97.0 117 20 102/69 (80) 91 09/08/18 00:00 113 09/08/18 00:00 98.0 116 22 118/64 (82) 98 Intake and Output 09/07/18 09/08/18 19:00 07:00 Intake Total 850 ml Balance 850 ml Intake Oral 850 ml # Voids 3 5 # Bowel Movements 1 Laboratory Tests 09/08/18 05:15: White Blood Count 8.2, Red Blood Count 3.88L, Hemoglobin 10.7L, Hematocrit 34.9L , Mean Corpuscular Volume 90, Mean Corpuscular Hemoglobin 27.4, Mean Corpuscular Hemoglobin Concent 30.5L, Red Cell Distribution Width 16.3H, Platelet Count 316, Mean Platelet Volume 6.9, Neutrophils (%) (Auto) 69.7, Lymphocytes (%) (Auto) 18.5L, Monocytes (%) (Auto) 7.7, Eosinophils (%) (Auto) 2.7, Basophils (%) (Auto) 1.3 Height (Feet): 5 Height (Inches): 2.00 Weight (Pounds): 260 Neck: supple Cardiovascular: normal rate Respiratory/Chest: lungs clear Abdomen: soft Brendan Gregory MD Sep 08, 2018 21:41
[2018-09-09] VITALS: BP 134/83
[2018-09-09 04:00] VITALS: BP 124/77
--- NOTE | 2018-09-09 07:29 | NUR ---
HAND-OFF: Report given to Jay Jay FLYNN.
--- NOTE | 2018-09-09 07:36 | NUR ---
NURSE NOTES: Received report from GEE Burton. Rounding done with outgoing nurse. Patient asleep. Sitter at bed side. Bed in lowest position, call light within reach. Will continue to monitor.
[2018-09-09 08:00] VITALS: BP 117/74
[2018-09-09] MEDS: Docusate 100mg cap ORAL SCH ×2 (09:00→12:18)
--- NOTE | 2018-09-09 10:27 | GI Progress Note ---
Assessment/Plan Problems: (1) Gastritis ICD Codes: K29.70 - Gastritis, unspecified, without bleeding SNOMED: 6339287 (2) Diarrhea ICD Codes: R19.7 - Diarrhea, unspecified SNOMED: 72934165 (3) Dehydration ICD Codes: E86.0 - Dehydration SNOMED: 12058875 (4) Abdominal pain ICD Codes: R10.9 - Unspecified abdominal pain SNOMED: 99507240 (5) Iron deficiency anemia ICD Codes: D50.9 - Iron deficiency anemia, unspecified SNOMED: 74260569 (6) Bipolar 1 disorder ICD Codes: F31.9 - Bipolar disorder, unspecified SNOMED: 076416873 Status: stable Status Narrative Discussed with Dr. Mims Assessment/Plan s/p EGD noted with gastritis, otherwise normal examination ppi daily fu cbc fu stool ob, pending colonoscopy if needed Pain management Zofran as needed The patient was seen and examined at bedside and all new and available data was reviewed in the patients chart. I agree with the above findings, impression and plan. (Patient seen earlier today. Signature stamp does not reflect patient encounter time.). - Gurpreet Mims MD Subjective Gastrointestinal/Abdominal: Reports: no symptoms Subjective Refused a.m. lab draws Objective Last 24 Hour Vital Signs Date Time Temp Pulse Resp B/P (MAP) Pulse Ox O2 Delivery O2 Flow Rate FiO2 09/09/18 09:00 Room Air 09/09/18 08:43 102 20 97 Room Air 09/09/18 08:42 101 20 97 Room Air 09/09/18 08:00 98.1 109 20 117/74 (88) 98 09/09/18 04:00 98.0 103 20 124/77 (93) 97 09/09/18 00:00 98.8 103 20 134/83 (100) 91 09/08/18 21:00 Room Air 09/08/18 20:00 98.2 104 20 123/85 (98) 92 09/08/18 19:24 104 18 95 Room Air 21 09/08/18 19:22 104 18 95 Room Air 21 09/08/18 19:21 104 18 Room Air 21 09/08/18 16:00 98.7 104 20 111/76 (88) 94 09/08/18 12:00 99.0 112 18 126/65 (85) 91 Intake and Output 09/08/18 09/09/18 18:59 06:59 Intake Total 1110 ml 240 ml Balance 1110 ml 240 ml Intake Oral 1110 ml 240 ml # Voids 3 6 # Bowel Movements 2 Height (Feet): 5 Height (Inches): 2.00 Weight (Pounds): 260 General Appearance: WD/WN, no apparent distress, alert Cardiovascular: normal rate Respiratory/Chest: normal breath sounds, no respiratory distress Abdominal Exam: normal bowel sounds, non tender, soft Extremities: normal range of motion, non-tender Rui Kapoor NP Sep 09, 2018 10:27
--- NOTE | 2018-09-09 10:30 | NUR ---
NURSE NOTES: Patient refused CBC and AGENCY SALES DIRECTOR [place] notified.
--- NOTE | 2018-09-09 10:43 | Infectious Diseases Prog Note ---
Assessment/Plan Assessment/Plan A; 1. Sepsis with leukocytosis and tachycardia.resolved 2. COPD exacerbation. 3. Morbid obesity. treated 4. Bipolar disorder. 5. Anemia.Iron deficiency 6. diarrhea resolved RECOMMENDATION: 1. Observe off antibiotic 2. Agree with discharge Subjective ROS Limited/Unobtainable: No Constitutional: Reports: no symptoms Respiratory: Reports: no symptoms Cardiovascular: Reports: no symptoms Gastrointestinal/Abdominal: Reports: no symptoms Genitourinary: Reports: no symptoms Allergies: Coded Allergies: PEANUT (Verified Allergy, Intermediate, hives, 09/03/18) TOMATO (Verified Allergy, Intermediate, hives, 09/03/18) [place] (Verified Allergy, Unknown, hives, 09/03/18) SULFA (SULFONAMIDE ANTIBIOTICS) (Verified Allergy, Unknown, 09/03/18) Objective Vital Signs Last 24 Hour Vital Signs Date Time Temp Pulse Resp B/P (MAP) Pulse Ox O2 Delivery O2 Flow Rate FiO2 09/09/18 09:00 Room Air 09/09/18 08:43 102 20 97 Room Air 21 09/09/18 08:42 101 20 97 Room Air 21 09/09/18 08:00 98.1 109 20 117/74 (88) 98 09/09/18 04:00 98.0 103 20 124/77 (93) 97 09/09/18 00:00 98.8 103 20 134/83 (100) 91 09/08/18 21:00 Room Air 09/08/18 20:00 98.2 104 20 123/85 (98) 92 09/08/18 19:24 104 18 95 Room Air 21 09/08/18 19:22 104 18 95 Room Air 21 09/08/18 19:21 104 18 Room Air 21 09/08/18 16:00 98.7 104 20 111/76 (88) 94 09/08/18 12:00 99.0 112 18 126/65 (85) 91 Height (Feet): 5 Height (Inches): 2.00 Weight (Pounds): 260 General Appearance: no acute distress HEENT: mucous membranes moist Respiratory/Chest: decreased breath sounds Cardiovascular: tachycardia Abdomen: soft, non tender Extremities: no edema Neurologic/Psychiatric: alert, oriented x 3, responsive Current Medications Medications (Trade) Dose Ordered Sig/Jason Route PRN Reason Start Time Stop Time Status Last Admin Dose Admin Al Hydroxide/Mg Hydroxide (Mylanta) 30 ml QIDPRN PRN ORAL Gastric Discomfort 09/08/18 15:00 10/08/18 14:59 Albuterol/ Ipratropium (Albuterol/ Ipratropium) 3 ml Q4H PRN HHN Shortness of Breath 09/08/18 15:00 09/13/18 14:59 Docusate Sodium (Colace) 100 mg THREE TIMES A DAY ORAL 09/08/18 18:00 10/04/18 12:59 Ferrous Sulfate (Feosol) 325 mg THREE TIMES A DAY ORAL 09/08/18 18:00 10/04/18 17:59 09/09/18 09:15 Metoclopramide HCl (Reglan) 10 mg Q6H PRN IVP Nausea & Vomiting 09/08/18 16:00 10/05/18 15:59 Pantoprazole (Protonix) 40 mg EVERY 12 HOURS ORAL 09/08/18 21:00 10/04/18 20:59 09/09/18 09:15 Patient Own Medication (Patient's Own Med) 2 ea BID ORAL 09/08/18 18:00 10/08/18 17:59 09/09/18 08:41 Quetiapine Fumarate (SEROquel) 200 mg BEDTIME ORAL 09/08/18 21:00 10/03/18 20:59 09/08/18 20:53 Howie Sams MD Sep 09, 2018 10:43
--- NOTE | 2018-09-09 10:50 | NUR ---
NURSE NOTES: Cleared by Dr. Bull. Noted and carried out.
--- NOTE | 2018-09-09 10:55 | NUR ---
NURSE NOTES: Dr. Jose Sams ordered no antibiotics needed for D/C.
--- NOTE | 2018-09-09 10:58 | Psych Consult Progress Note ---
Psychiatry Progress Note Psychiatry Progress Note Medications Current Medications Medications (Trade) Dose Ordered Sig/Jason Route PRN Reason Start Time Stop Time Status Last Admin Dose Admin Al Hydroxide/Mg Hydroxide (Mylanta) 30 ml QIDPRN PRN ORAL Gastric Discomfort 09/08/18 15:00 10/08/18 14:59 Albuterol/ Ipratropium (Albuterol/ Ipratropium) 3 ml Q4H PRN HHN Shortness of Breath 09/08/18 15:00 09/13/18 14:59 Docusate Sodium (Colace) 100 mg THREE TIMES A DAY ORAL 09/08/18 18:00 10/04/18 12:59 Ferrous Sulfate (Feosol) 325 mg THREE TIMES A DAY ORAL 09/08/18 18:00 10/04/18 17:59 09/09/18 09:15 Metoclopramide HCl (Reglan) 10 mg Q6H PRN IVP Nausea & Vomiting 09/08/18 16:00 10/05/18 15:59 Pantoprazole (Protonix) 40 mg EVERY 12 HOURS ORAL 09/08/18 21:00 10/04/18 20:59 09/09/18 09:15 Patient Own Medication (Patient's Own Med) 2 ea BID ORAL 09/08/18 18:00 10/08/18 17:59 09/09/18 08:41 Quetiapine Fumarate (SEROquel) 200 mg BEDTIME ORAL 09/08/18 21:00 10/03/18 20:59 09/08/18 20:53 Problems: (1) Bipolar 1 disorder Status: Chronic Allergies: Coded Allergies: PEANUT (Verified Allergy, Intermediate, hives, 09/03/18) TOMATO (Verified Allergy, Intermediate, hives, 09/03/18) [place] (Verified Allergy, Unknown, hives, 09/03/18) SULFA (SULFONAMIDE ANTIBIOTICS) (Verified Allergy, Unknown, 09/03/18) Objective Data Height (Feet): 5 Height (Inches): 2.00 Weight (Pounds): 260 General Appearance: WD/WN, no apparent distress, alert, morbidly obese Assessment/Plan Problem List: (1) Bipolar 1 disorder ICD Codes: F31.9 - Bipolar disorder, unspecified SNOMED: 489690711 Status: stable Assessment/Plan Seroquel 300mg po qhs the pt is not a dto/dts the pt does not need the sitter the pt is not suicidal the pt doesn't need psych [facility] Everton Bull MD Sep 09, 2018 10:58
--- NOTE | 2018-09-09 11:00 | NUR ---
NURSE NOTES: Received medical record from [facility].
--- NOTE | 2018-09-09 11:11 | NUR ---
NURSE NOTES: D/C clearance by Dr. Ca.
--- NOTE | 2018-09-09 11:19 | NUR ---
DISCHARGE PLANNING PATIENT DOES NOT MEET CRITERIA FOR SNF PLACEMENT ANIMAL ANATOMY TEACHER WILL WORK ON DISCHARGE PLACEMENT
[2018-09-09 12:00] VITALS: BP 132/82
--- NOTE | 2018-09-09 13:10 | NUR ---
Social Service Note SW referred patient to [facility]. Unfortunately they are unable to accept patient at this time. Will explore other placement options.
--- NOTE | 2018-09-09 13:19 | Nephrology Progress Note ---
Assessment/Plan Problem List: (1) Iron deficiency anemia (2) Hypoalbuminemia (3) COPD exacerbation Assessment Anemia HypoAlbuminemia UTI COPD exacerbation ? CHF Psych Ds Plan Anemia quiroz- low Iron BP in check per Psych antibiotics pulm toilet hold off beta blockers due to COPD per orders Subjective ROS Limited/Unobtainable: No Constitutional: Reports: malaise Objective Objective Last 24 Hour Vital Signs Date Time Temp Pulse Resp B/P (MAP) Pulse Ox O2 Delivery O2 Flow Rate FiO2 09/09/18 12:00 98.3 101 18 132/82 (99) 97 09/09/18 09:00 Room Air 09/09/18 08:43 102 20 97 Room Air 21 09/09/18 08:42 101 20 97 Room Air 21 09/09/18 08:00 98.1 109 20 117/74 (88) 98 09/09/18 04:00 98.0 103 20 124/77 (93) 97 09/09/18 00:00 98.8 103 20 134/83 (100) 91 09/08/18 21:00 Room Air 09/08/18 20:00 98.2 104 20 123/85 (98) 92 09/08/18 19:24 104 18 95 Room Air 21 09/08/18 19:22 104 18 95 Room Air 21 09/08/18 19:21 104 18 Room Air 21 09/08/18 16:00 98.7 104 20 111/76 (88) 94 Intake and Output 09/08/18 09/09/18 18:59 06:59 Intake Total 1110 ml 240 ml Balance 1110 ml 240 ml Intake Oral 1110 ml 240 ml # Voids 3 6 # Bowel Movements 2 Current Medications Medications (Trade) Dose Ordered Sig/Jason Route PRN Reason Start Time Stop Time Status Last Admin Dose Admin Al Hydroxide/Mg Hydroxide (Mylanta) 30 ml QIDPRN PRN ORAL Gastric Discomfort 09/08/18 15:00 10/08/18 14:59 Albuterol/ Ipratropium (Albuterol/ Ipratropium) 3 ml Q4H PRN HHN Shortness of Breath 09/08/18 15:00 09/13/18 14:59 Docusate Sodium (Colace) 100 mg THREE TIMES A DAY ORAL 09/08/18 18:00 10/04/18 12:59 Ferrous Sulfate (Feosol) 325 mg THREE TIMES A DAY ORAL 09/08/18 18:00 10/04/18 17:59 09/09/18 12:18 Metoclopramide HCl (Reglan) 10 mg Q6H PRN IVP Nausea & Vomiting 09/08/18 16:00 10/05/18 15:59 Pantoprazole (Protonix) 40 mg EVERY 12 HOURS ORAL 09/08/18 21:00 10/04/18 20:59 09/09/18 09:15 Patient Own Medication (Patient's Own Med) 2 ea BID ORAL 09/08/18 18:00 10/08/18 17:59 09/09/18 08:41 Quetiapine Fumarate (SEROquel) 200 mg BEDTIME ORAL 09/08/18 21:00 10/03/18 20:59 09/08/18 20:53 Height (Feet): 5 Height (Inches): 2.00 Weight (Pounds): 260 General Appearance: no apparent distress Objective no change Dante Patel MD Sep 09, 2018 13:19
--- NOTE | 2018-09-09 14:00 | NUR ---
Social Service Note SW and workforce planner met with patient to discuss impending dc planning. Patient's male friend Seth was at patient's bedside. Seth is the friend she was staying with prior to admission. Patient states they have been on again and off again for 14 years. If appears Seth lives in [address] [place] [address] [address] [place] [id number] and patient is only able to stay less then 30days at a time. Seth and patient discussed patient's return to his residence. Patient is not agreeable to retirement placement. Patient inquired about SRO housing. SW explained SRO housing availability is not immediate and is a process. Patient's intent to stay in [place] is not clear. Patient states if she isn't able to return to Seth's home then she will require assistance to the [employer] to return to [place]. SW discussed if patient is planning to stay with Seth homeless resources centers can be provided to patient to obtain case management services. Patient stated she was not interested and would like to return home to [place]. As SW was completing check list patient decided to leave with her friend Seth and stated she didn't require taxi to the [employer]. Homeless discharge check list completed and signed by patient. SW left a message for Radha Doll at [facility] [phone]. Per nursing patient didn't require prescription.
--- NOTE | 2018-09-09 14:40 | NUR ---
NURSE NOTES: Discharge instruction was given. Belongings checked with the patient. RN was going to give seroquel prescription but patient stat she has seroquel meds at home so she does not need prescription. Dr. Bull is aware. IV and name band were removed. Patient discharged with her friend in stable condition. Addendum: 09/09/18 at 1539 by Laina Goyal RN ADDENDUM Pt.'s own meds were given.
--- NOTE | 2018-09-09 15:01 | NUR ---
*-* INSURANCE *-* ALL CLINICALS AND REVIEWS HAVE BEEN FAXED TO: [facility] P- [phone] F- [phone]
--- NOTE | 2018-09-09 16:11 | General Progress Note ---
Assessment/Plan Assessment: Assessment and Recs: # Anemia of iron deficiency, ferritin at this time is decreased, is <100, has been started on iron, is 59 --> Anemia workup has been reviewed --> No evidence of hemolysis is noted, peripheral smear has been reviewed. --> Hgb goal >7. Transfuse prn. --> Po ferrous sulfate has been started --> Medications have been reviewed --> evaluate with Gi team prn, endoscopy 09/06, does show e/o gastritis --> transfuse if hgb is < 7 (will trend CBC daily) TREND 10.9-->10.7 # Leukocytois is likely related to stress reaction/infection --> trend wbc, 12k # COPD exacerbation --> on, abx, breathing treatments on prn basis --> pulm eval prn # Electrolyte disorder --> as per renal # Psych disorder --> as per psych # Trachycardia is likely related to hemodilution --> appears improved The timing of this note does not necessarily reflect the time of the patient was seen. Greatly appreciate consultation! Subjective Constitutional: Denies: no symptoms, chills, diaphoresis, fever, malaise, weakness, other HEENT: Denies: no symptoms, eye pain, blurred vision, tearing, double vision, ear pain, ear discharge, nose pain, nose congestion, throat pain, throat swelling, mouth pain, mouth swelling, other Cardiovascular: Denies: no symptoms, chest pain, edema, irregular heart rate, lightheadedness, palpitations, syncope, other Respiratory: Denies: no symptoms, cough, orthopnea, shortness of breath, SOB with excertion, SOB at rest, sputum, stridor, wheezing, other Gastrointestinal/Abdominal: Denies: no symptoms, abdomen distended, abdominal pain, black stools, tarry stools, blood in stool, constipated, diarrhea, difficulty swallowing, nausea, poor appetite, poor fluid intake, rectal bleeding , vomiting, other Genitourinary: Denies: no symptoms, burning, discharge, frequency, flank pain, hematuria, incontinence, pain, urgency, other Neurologic/Psychiatric: Denies: no symptoms, anxiety, depressed, emotional problems, headache, numbness, paresthesia, pre-existing deficit, seizure, tingling, tremors, weakness, other Endocrine: Denies: no symptoms, excessive sweating, flushing, intolerance to cold, intolerance to heat, increased hunger, increased thirst, increased urine, unexplained weight gain, unexplained weight loss, other Hematologic/Lymphatic: Denies: no symptoms, anemia, easy bleeding, easy bruising, other Allergies: Coded Allergies: PEANUT (Verified Allergy, Intermediate, hives, 09/03/18) TOMATO (Verified Allergy, Intermediate, hives, 09/03/18) [place] (Verified Allergy, Unknown, hives, 09/03/18) SULFA (SULFONAMIDE ANTIBIOTICS) (Verified Allergy, Unknown, 09/03/18) Subjective 09/05: no events tomorrow is endoscopy, no bleeding, hgb 10 09/06: no events, no fevers of chills, is on ferrous sulfate, egd has been completed 09/08: off antibiotics at this time, seen by id, observe off abx 09/09: potential dc shortly, no f/c noted Objective Last 24 Hour Vital Signs Date Time Temp Pulse Resp B/P (MAP) Pulse Ox O2 Delivery O2 Flow Rate FiO2 09/09/18 12:00 98.3 101 18 132/82 (99) 97 09/09/18 09:00 Room Air 09/09/18 08:43 102 20 97 Room Air 21 09/09/18 08:42 101 20 97 Room Air 21 09/09/18 08:00 98.1 109 20 117/74 (88) 98 09/09/18 04:00 98.0 103 20 124/77 (93) 97 09/09/18 00:00 98.8 103 20 134/83 (100) 91 09/08/18 21:00 Room Air 09/08/18 20:00 98.2 104 20 123/85 (98) 92 09/08/18 19:24 104 18 95 Room Air 21 09/08/18 19:22 104 18 95 Room Air 21 09/08/18 19:21 104 18 Room Air 21 Intake and Output 09/08/18 09/09/18 18:59 06:59 Intake Total 1110 ml 240 ml Balance 1110 ml 240 ml Intake Oral 1110 ml 240 ml # Voids 3 6 # Bowel Movements 2 Height (Feet): 5 Height (Inches): 2.00 Weight (Pounds): 260 Objective Physical Exam: Vitals: reviewed General Appearance: NAD HEENT: normocephalic, atraumatic Neck: non-tender, normal alignment Respiratory/Chest: ++ sob noted Cardiovascular/Chest: normal peripheral pulses, normal rate Abdomen: normal bowel sounds, soft, nontender Extremities: normal range of motion Jackson Goff MD Sep 09, 2018 16:11
--- NOTE | 2018-09-09 21:38 | Psych Consult Progress Note ---
Psychiatry Progress Note Psychiatry Progress Note Problems: (1) Bipolar 1 disorder Status: Chronic Neurological/Psychiatric: Reports: no symptoms Allergies: Coded Allergies: PEANUT (Verified Allergy, Intermediate, hives, 09/03/18) TOMATO (Verified Allergy, Intermediate, hives, 09/03/18) [place] (Verified Allergy, Unknown, hives, 09/03/18) SULFA (SULFONAMIDE ANTIBIOTICS) (Verified Allergy, Unknown, 09/03/18) Objective Data Height (Feet): 5 Height (Inches): 2.00 Weight (Pounds): 260 General Appearance: WD/WN, no apparent distress, alert, obese Assessment/Plan Problem List: (1) Bipolar 1 disorder ICD Codes: F31.9 - Bipolar disorder, unspecified SNOMED: 260233807 Status: doing well, stable, progressing Assessment: Seroquel 300mg po qhs the pt is not a dto/dts the pt does not need the sitter the pt is not suicidal the pt doesn't need psych [facility] Everton Bull MD Sep 09, 2018 21:38
--- NOTE | 2018-09-11 09:52 | Discharge Summary ---
Discharge Summary Discharge Summary _ DATE OF ADMISSION: 09/03/2018 DATE OF DISCHARGE: 09/09/2018 DISCHARGED BY: Dr Gregory REASON FOR ADMISSION: 48 years old female with past medical history of hypertension, COPD, asthma, psychiatric history, bipolar disorder, presented to emergency room for evaluation due to shortness of breath. Patient complained of shortness of breath and chest tightness for few days. She denied chest pain. She denied fever and chills. She denied cough. Patient stopped smoking 1 week ago. Upon evaluation patient was tachycardic, tachypneic, pulse oximetry was 92% on room air. Laboratory workup revealed leukocytosis WBC 16.9 Urinalysis revealed possible UTI. Stable renal parameters and electrolytes. Troponin negative. Total CK stable. EKG revealed sinus tachycardia, no acute ischemic changes. Lactic acid 0.8. Chest x-ray demonstrated mild pulmonary interstitial congestion. In emergency department patient received antibiotic and IV fluids and was admitted for further management. CONSULTANTS: profiler Dr. Ochoa ID specialist Dr. Rendon GI specialist Dr. Mims biophysics scientist Dr. Patel architectural drafting instructor/oncologist Dr. Goff psychiatrist [facility]: Supplemental oxygen provided as needed to keep pulse oximetry above 92%. Pulmonary toilet with bronchodilator /levalbuterol provided.. Patient started on empiric antibiotic. Infectious disease specialist followed. Urine culture revealed mixed urogenital contaminant. Blood culture were negative. Leukocytosis resolved, no fevers. ID specialist recommended to observe patient off antibiotics. Patient was observed to have prolonged sinus pauses. Cardiology consult was requested. Echocardiogram revealed preserved ejection fraction of 60-65% with no evidence of left ventricular hypertrophy. No evidence of wall motion abnormality. Right ventricular systolic pressure of 47 consistent with moderate pulmonary hypertension. Elevator Starter followed. Clonidine was stopped. During the day heart rate was stable. Per cardiology, if pauses persist, consider permanent pacing. Elevator Starter also recommended outpatient evaluation for sleep apnea due to high clinical suspicion for diagnosis. Patient did not have any further sinus pauses. Elevator Starter suspected that prolonged pauses initially were due to obstructive sleep sleep apnea and possibly clonidine. Outpatient sleep study evaluation was recommended. Inventory Control Analyst followed. Renal parameters and electrolytes were closely monitored. Electrolytes corrected as needed nephrotoxins were avoided. Blood pressure was managed with current regimen and remained stable. Inventory Control Analyst recommended hold off on beta-tam due to COPD. Hemoglobin and hematocrit were closely monitored with goal to keep hemoglobin above 7. Two Needle Machine Operator followed. Anemia workup was suggestive of iron deficiency anemia with low ferritin. Patient started on oral iron sulfate supplement. No evidence of hemolysis. Prior to discharge hemoglobin 10.7, hematocrit 34.9. Stool for occult blood was negative. GI specialist closely followed for complaints of abdominal pain. Patient undergone upper endoscopy with biopsy which revealed gastritis, otherwise normal endoscopic examination. Biopsy of antrum revealed moderate chronic gastritis, focally active, no H. pylori was identified. Patient was placed on PPI. Bowel regimen instituted. Pain management was addressed, and pain was controlled. Antiemetic provided as needed. Psychiatrist followed. Psychiatrist diagnosed patient with bipolar 1 disorder. Psychiatric medication regimen was optimized. Patient was not a danger to others or self and and not did not require sitter. Patient also did not require psychiatric hospitalization as per psychiatric evaluation. Patient clinically stabilized and was ready for discharge home. No further evidence of sinus pauses. Patient was stable for discharge home. Patient was counseled to continue abstinence from smoking. Patient was recommended outpatient sleep study. Patient was recommended to avoid nonsteroidal anti-inflammatory medication. FINAL DIAGNOSES: Sepsis with leukocytosis and tachycardia COPD exacerbation Iron deficiency anemia Gastritis ,status post EGD Morbid obesity Dehydration Bipolar 1 disorder Sinus pauses Probably obstructive sleep apnea DISCHARGE MEDICATIONS: See Medication Reconciliation list. DISCHARGE INSTRUCTIONS: Patient was discharged home . Follow up with primary care provider in one week. I have been assigned to dictate discharge summary for this account. I was not involved in the patient's management. Shannan Méndez NP Sep 11, 2018 09:52
== END 2018-09-09 13:50 | disposition home or self-care (01) | DRG 720 ==
LOC: EDBD 09:16 → EMR 09:42 → 2E 12:00 → EDBEDREQ 13:40 → 3E 09-08 14:36
PROC: 0DB78ZX Excision of Stomach, Pylorus, Via Natural or Artificial Opening Endoscopic, Diagnostic (ICD-10-PCS; principal; 2018-09-06 11:14)
DX: A41.9 Sepsis, unspecified organism (principal); E66.01 Morbid (severe) obesity due to excess calories; I36.1 Nonrheumatic tricuspid (valve) insufficiency; Z68.41 Body mass index [BMI] 40.0-44.9, adult; J44.1 Chronic obstructive pulmonary disease with (acute) exacerbation; I10 Essential (primary) hypertension; K29.50 Unspecified chronic gastritis without bleeding; D50.9 Iron deficiency anemia, unspecified; G47.33 Obstructive sleep apnea (adult) (pediatric); N39.0 Urinary tract infection, site not specified; F31.9 Bipolar disorder, unspecified; I45.5 Other specified heart block; Z59.0 Homelessness; Z91.018 Allergy to other foods; Z91.010 Allergy to peanuts; Z88.2 Allergy status to sulfonamides; R19.7 Diarrhea, unspecified; R00.0 Tachycardia, unspecified; Z87.891 Personal history of nicotine dependence; I34.0 Nonrheumatic mitral (valve) insufficiency
CPT/HCPCS: 36415; 71045; 80048; 80053; 80307; 81003; 82270; 82550; 82553; 82607; 82728; 82746; 82962; 83540; 83550; 83605; 83735; 83880; 84100; 84484; 85025; 85610; 85730; 87040; 87086; 93005; 93306; 94003; 94150; 94640; 94664; 96365; 96368; 96375; 99285; J2250